=== PATIENT | male | born 1955 | race Caucasian/White ===

== ENCOUNTER 2017-04-05 18:16 | Inpatient (IN) | payer MEDICARE ==
[~2017-04-05] VITALS: Ht 168.9 cm; Wt 90.1 kg
--- NOTE | 2017-04-05 17:50 | NUR ---
PT ARRIVED TO UNIT PT IS ALERT AND ORIENTED ADMISSION COMPLETE. PIV SITED TO R FA 22G X2 STICKS. DRESSING ADHERED TO SKIN SWAB CAPS IN USE. PT REFUSES TO WEAR SCDS BECAUSE "FEAR OF FALLING" PT IS TAKING HOME MED ELIQUIS. BA IS ON. FALL BAND AND ALLERGY BAND PLACED.
[~2017-04-05 18:16] MED LIST: ACTOS30 MG PO; CARBATROL300 MG PO; DEPAKOTE500 MG PO; ELIQUIS2.5 MG PO; HUMULIN N100 U/ML SC; HUMULIN R100 U/ML SC; LIPITOR40 MG PO; LISINOPRIL5 MG PO; MYSOLINE250 MG PO; PREDNISONE5 MG PO; PRINIVIL20 MG PO; TENORMIN25 MG PO
[2017-04-05] MEDS ORDERED: CARBATROL300 MG PO (18:23)
[2017-04-05] MEDS ORDERED: BAYER CHEWABLE81 MG PO (18:23)
[2017-04-05 18:24] VITALS: BP 136/64; BMI 30.2
[2017-04-05 18:47] LABS: BASOPHILS 0.9 % (0-2); EOSINOPHILS 0.9 % (0-7); HEMATOCRIT 43.4 % (42.0-54.0); HEMOGLOBIN 14.7 g/dL (13.5-17.5); IMMATURE GRANULOCYTES 0.2 % (0-5); LYMPHOCYTES 29.9 % (15-50); MCH 32.2 pg (26.0-34.0); MCHC 33.9 g/dL (31.0-37.0); MEAN PLATELET VOLUME 10.5 fL (7.4-10.4); MONOCYTES 11.1 % (2-11); PLATELET COUNT 176 10x3/uL (130-400); RBC 4.57 10x6/uL (4.20-6.10); RDW 12.5 % (11.5-14.5); WBC 5.9 10x3/uL (4.8-10.8)
[2017-04-05 19:34] LABS: ALBUMIN 3.6 g/dL (3.4-5.0); ANION GAP 12.6 mmol/L (8-16); BILIRUBIN - TOTAL 0.36 mg/dL (0.2-1.3); CALCIUM 9.4 mg/dL (8.5-10.1); CARBON DIOXIDE 30.4 mmol/L (21.0-32.0); CREATININE - SERUM 1.2 mg/dL (0.6-1.3); PROTEIN - SERUM 7.1 g/dL (6.4-8.2)
[2017-04-05 19:43] LABS: CARBAMAZEPINE (TEGRETOL) 8.5 ug/mL (4.0-12.0); T4 THYROXIN - FREE 0.7 ng/dL (0.76-1.46); T4 THYROXINE 3.6 ug/dL (4.7-13.3); THYROID STIMULATING HORMONE 1.06 uIU/mL (0.36-3.74)
--- NOTE | 2017-04-05 21:21 | NUR ---
HS MEDS GIVEN WITH FRESH DIET COLA, PT DENIES PAIN OR OTHER NEEDS, BED LOW, CL IN REACH, WILL CONT TO MONITOR.
[2017-04-05 22:09] VITALS: BP 161/75
--- NOTE | 2017-04-06 01:33 | NUR ---
RESTING WITH EYES CLOSED, RESPERATIONS EVEN, NO S/S DISTRESS NOTED.
[2017-04-06 05:13] VITALS: BP 133/62
[2017-04-06] MEDS ORDERED: VALIUM 2 MG TAB2 MG PO (06:32)
--- NOTE | 2017-04-06 06:37 | NUR ---
TYLENOL 500 MG TAB GIVEN FOR C/O HEADACHE.
--- NOTE | 2017-04-06 07:29 | NUR ---
PT SITTING UP IN BED DENIES ANY NEEDS. GIVEN PT INSTRUCTIONS ON HOW TO OBTAIN CLEAN CATCH URINE. PT BA ON. WILL CONT TO MONITOR
--- NOTE | 2017-04-06 08:40 | NUR ---
PT SITTING IN HIGH FOWLERS POSITION. PHYSICAL ASSESSMENT DONE, SEE SHIFT ASSESS. 3 AREAS OF BRUISING/SCABS NOTED TO HEAD. LARGER ONES NOTED ABOVE RIGHT BROW LINE AND BACK OF CROWN ON LEFT SIDE. PT REPORTS A "MILD AND DULL PAIN". NO ACTIVE DRAINING NOTED FROM SORES. IV OF 0.45NS INFUSING VIA PUMP AT 30ML/HR TO RIGHT FA. SITE C/D/I. SKIN IS DRY AND FLAKY ALL OVER, EXACERBATED IN LOWER EXTREMETIES AND FEET. TOENAIS YELLOW AND RIGID. PT REPORTS PUTTING VICKS VAPOR RUB ON FEET AT HOME IN THE EVENINGS. PT INSTRUCTED ON CLEAN CATCH URINE PROCESS AND VERBALIZES UNDERSTANDING. AM MEDS GIVEN. PT DENIES FURTHER NEEDS AT THIS TIME.
[2017-04-06 08:41] VITALS: BP 104/54
--- NOTE | 2017-04-06 09:40 | NUR ---
PT IN LEFT TILT SEMI FOWLERS POSITION. PT REQUEST LIGHT TO BE DIMMED AND DOOR CLOSED. PT DENIES FURTHER NEEDS AT THIS TIME.
[2017-04-06 09:52] LABS: APPEARANCE TURBID (CLEAR); BILIRUBIN NEGATIVE (NEGATIVE); COLOR YELLOW (YELLOW); GLUCOSE 1000 mg/dL (NEGATIVE); KETONE SMALL mg/dL (NEGATIVE); LEUKOCYTE ESTERASE 2+ (NEGATIVE); NITRITE NEGATIVE (NEGATIVE); PROTEIN TRACE mg/dL (NEGATIVE); UROBILINOGEN NORMAL (NORMAL); WHITE CELLS - URINE >50 /hpf (0-5)
[2017-04-06 09:53] LABS: BACTERIA MANY /hpf (NONE SEEN); EPITHELIAL CELLS RARE /hpf (0-5); MUCUS <1+ /lpf (NONE SEEN)
--- NOTE | 2017-04-06 11:00 | NUR ---
PT IN RIGHT TILT POSITION RESTING WITH EYES CLOSED. RESP. EVEN AND UNLABORED. NO DISTRESS NOTED.
--- NOTE | 2017-04-06 12:15 | NUR ---
PT SITTING UP ONSIDE OF THE BED EATING DIET TRAY. DENIES NEEDS AT THIS TIME. VISITORS IN ROOM.
[2017-04-06 12:46] VITALS: BP 153/76
--- NOTE | 2017-04-06 13:15 | NUR ---
PT ASSISTED TO SHOWER CHAIR WHERE HE SHOWERS PER SELF. MARGARITA DOSHI REMAINS IN ROOM COMPLETING LINEN CHANGE AT THIS TIME.
--- NOTE | 2017-04-06 14:44 | NUR ---
LEAD GAME DESIGNER APPLIED PER ORDER. SINUS BRADYCARDIA AT 59 PER DESIGN MAKER.
[2017-04-06 16:53] VITALS: BP 157/58
--- NOTE | 2017-04-06 17:02 | NUR ---
Patient Name: ELLIOT FOX Admission Status: Elective Accout number: [id number] Admission Date: 04-05-2017 : 1955 Admission Diagnosis: Attending: EDGAR Current LOS: 1 Anticipated DC Date: TO BE DETERMINED Planned Disposition: Fdc Facility Primary Insurance: HUMANA CHOICE PPO MCR ADVANT PLANNED EXTERNAL PROVIDER: [facility] OR ASSISTED LIVING Discharge Planning Comments: * Is the patient Alert and Oriented? Yes 0 * How many steps to enter\\exit or inside your home? NONE 0 * PCP DR. ROACH 0 * Pharmacy [facility] 0 * Preadmission Environment Retirement 0 * Facility Name [facility] 0 * ADLs Partial Dependent 0 * Partial ADLs (Assistance needed) Medication Management 0 * Equipment Cane Glucometer 0 * Other Equipment NO MEDICAL EQUIPMENT PROVIDER PREFERENCE 0 * List name and contact numbers for known caregivers / representatives who currently or will assist patient after discharge: RICKY HARTMANN, FRIEND, 0 * Community resources currently utilized Other 0 * Please name any agencies selected above. [employer], [facility], HONG GUTIERREZ, 0 * Additional services required to return to the preadmission environment? Yes * Can the patient safely return to the preadmission environment? No 0 * Has this patient been hospitalized within the prior 30 days at any hospital? Yes 0 CM RECEIVED ORDER TO ASSIST WITH PLACEMENT. CM MET WITH PT IN ROOM TO DISCUSS DISCHARGE PLANNING AND NEEDS WELL ORDER. PT REPORTS LIVING AT [facility]. PT REPORTS THE FACILITY PROVIDES HIS MEDICATIONS AND TRANSPORTATION. PT REPORTS HE HAS BEEN GIVING HIMSELF HIS MEDICATIONS AND HAS BEEN ON INSULIN SINCE AGE 30. PT DENIES MENTAL ILLNESS, REPORTS HAVING SEIZURES SINCE AGE 10. PT HAS GLUCOMETER AND CANE. PT STATES HE CANNOT GO BACK TO [facility] AND NEEDS SOMEWHERE ELSE TO GO AND THAT RICKY HARTMANN IS THE PERSON THAT CM NEEDS TO CALL BECAUSE RICKY HARTMANN DOES HIS "LEGAL WORK" AND TAKES CARE OF PT'S BUSINESS. PT STATES THAT HE WILL GO WHERE RICKY ARRANGES FOR HIM. CM CALLED RICKY HARTMANN, ; RICKY REPORTS THAT PT WAS LIVING WITH HIS UNCLE UNTIL RICKY'S AUNT AND RICKY'S UNCLE HAD A STROKE. RICKY HAS TAKEN ON ASSISTING PT. PT HAS NO POWER OF REGIONAL TRAINER ASSIGNED. [facility] IS ASSIGNED CURRENTLY PT'S PAYEE FOR HIS CHECK. THE [facility] PT IS AT HAS NO HEALTHCARE INTERPRETER CAREGIVERS AND THEY HAVE NO OPENINGS AT [facility]. CM DISCUSSED ASSISTED LIVING AND [facility] OPTIONS. RICKY IS LEANING TOWARD [facility] PLACEMENT AND WOULD LIKE REFERRAL SENT TO [facility] HE HAS A PERSONAL RELATIONSHIP WITH THE FACILITY. RICKY ALSO CONSENTED TO REFERRAL TO [facility]. CM CALLED [facility], , SPOKE TO DEBBIE WHO REPORTS THEY DO NOT TYPICALLY ADMIT PERSONS UNDER AGE OF 65, BUT WILL CONSIDER PT AND ASKED FOR REFERRAL TO BE FAXED. CM CALLED [facility], , SPOKE TO ANNA MARIE WHO REPORTS SHE IS NOT HOPEFUL THAT THEY WILL ACCEPT PT BUT TO FAX REFERRAL AND THEY WILL REVIEW FOR HALF-WAY CARE ADMIT; PT WILL NEED [facility]Z APPROVAL TO ENTER ANY NEEDED [facility] FACILITY. CM CALLED HONG GUTIERREZ, RADIOGRAPHER TECHNOLOGIST AT [facility], , PROVIDED UPDATE ON PLACEMENT EFFORT. HONG FAXED CM PT'S IQ TESTING RESULTS. CM TO COMPLETE LUZ SCREENING, FAX TO [facility] AND ALSO FAX REFERRALS FOR PLACEMENT TO [facility] AND [facility]. Gold Layer: Mac Anton Appended by Mac Anton on 04/06/2017 17:02: CM COMPLETED LUZ WITH PT'S ASSISTANCE, OBTAINED DOCTORS SIGNATURE; FAXED TO [facility], . CM FAXED REFERRAL FOR HALF-WAY CARE PLACEMENT TO [facility], . CM FAXED REFERRAL FOR ASSISTED LIVING TO [facility], . CM SPOKE TO RICKY HARTMANN VIA PHONE AND PROVIDED UPDATE; RICKY REPORTS HE WILL RETURN TO [place] ON TUESDAY AND IS AVAILABLE VIA PHONE IF NEEDED. CM CALLED HONG WITH [facility] AND PROVIDED UPDATE. CM WAITING ADMISSION DETERMINATIONS FROM [facility] AND [facility]. CM WAITING LUZ SCREENING DETERMINATION. CM TO CONTINUE TO FOLLOW AND ASSIST. MAC ANTON, CASE MANAGEMENT
--- NOTE | 2017-04-06 18:33 | NUR ---
PT SITTING UP IN BED DENIES ANY NEEDS BA IS ON
--- NOTE | 2017-04-06 19:45 | NUR ---
PT RESTING IN BED. ALERT/ORIENTED. NONLABORED RESPIRATIONS ON ROOM AIR. IVF INFUSING TO RIGHT WRIST. ASSESSMENT COMPLETED. CPOC.
--- NOTE | 2017-04-06 21:28 | NUR ---
HS MEDS GIVEN. PT REQUESTING TYLENOL.
[2017-04-06 22:32] VITALS: BP 120/60
[2017-04-07] VITALS (7 sets, daily range): BP systolic 92–151; BP diastolic 47–82
--- NOTE | 2017-04-07 03:10 | NUR ---
PT AWAKE, C/O HEADACHE AND VERY KEYED UP AND UNABLE TO SLEEP. MEDICATED WITH TYLENOL AND VALIUM TO PROMOTE COMFORT AND SLEEP. IVF INFUSING. CPOC.
--- NOTE | 2017-04-07 07:29 | NUR ---
DURING AM ROUNDS, PT STATES THAT HE IS "HAVING A SEIZURE". I ASKED PT IF HE WAS CURRENTLY HAVING ONE AND WHAT HIS SYMPTOMS WERE. HE STATED "YOU KNOW HOW I KNOW? LOOK AT THIS FINGER.." AND THEN HE HELD OUT HIS R INDEX FINGER. THEN SAID "LOOK AT THIS FINGER, ITS SHORTER THAN THE OTHER ONE." THEN HELD OUT HIS LEFT INDEX FINGER. HE SAID "AND I AM COMPLETELY PARALYZED ON MY LEFT SIDE" PT IS STATING THIS HE IS MOTIONING HIS LEFT SIDE WITH HIS LEFT ARM. PT HAS FULL STRENGTH IN ALL EXTREMITIES. NO S/S SEIZURE LIKE ACTIVITY. PT STATES THAT THESE EPISODES MAY LAST ANYWHERE FROM 30 MIN-4 HOURS. AND HE MAY SLEEP FOR A WHILE AFTERWARDS AND TO NOT BE WORRIED ABOUT HIM. WILL CONT TO MONITOR
--- NOTE | 2017-04-07 11:06 | NUR ---
Patient Name: ELLIOT FOX Encounter No: [id number] : 1955 Primary Insurance: HUMANA CHOICE PPO MCR ADVANT Anticipated DC Date: Planned Disposition: Usp Facility OR ASSISTED LIVING External Planned Provider: [facility] OR [facility] follow-up note: CM RECEIVED LUZ RESPONSE INDICATING PT NEEDS LEVEL 2 LUZ PRIOR TO ENTERING ANY SNF FACILITY; THIS CAN TAKE UP TO 9 WORKING DAYS TO RECEIVE APPROVAL OR DENIAL. CM PLACED IN CHART, NOTIFIED NATHEN MURILLO. CM RECEIVED CALL FROM ANNA MARIE [facility] WHO IS CONTINUING TO EVAL PT FOR REHAB OR [facility], REQUESTED PT AND OT EVALUATION RESULTS WHEN RECEIVED. CM WAITING ON LUZ COMPLETION WHICH WILL LIKELY BE LATE NEXT WEEK. CM WAITING ADMISSION DETERMINATION FROM [facility] AND [facility] FOR REHAB OR [facility] PLACEMENT. RICKY HARTMANN, PT'S DECISION MAKER, WILL BE BACK IN [facility] SOMETIME TOMORROW, 04-08-17. Mac Camacho, CASE MANAGEMENT
--- NOTE | 2017-04-07 14:25 | NUR ---
PT SITTING UP IN BED SLEEPING. NO S/S DISTRESS NOTED RR EVEN AND UNLABORED. WILL CONT TO MONITOR
--- NOTE | 2017-04-07 17:19 | NUR ---
OT NOTE: PT COMPLETED BED MOB WITH MIN/MOD A. PT COMPLETED SITTING BALANCE WITH MIN A/CGA. PT COMPLETED FM SKILLS AX FOR INCREASED I WITH ADLS. PT COMPLETED SIMPLE GROOMING WITH CGA. THANK YOU, DARREL TOUSSAINT/Giovanna
--- NOTE | 2017-04-07 17:56 | NUR ---
PT SITTING UP IN BED WATCHING TV, DENIES ANY NEEDS WILL CONT TO MONITOR
--- NOTE | 2017-04-07 19:00 | NUR ---
RECEIVED REPORT AND ASSUMED PT CARE FROM DAY SHIFT NURSE @ THIS TIME.
[2017-04-08 04:00] VITALS: BP 108/57
[2017-04-08 07:48] VITALS: BP 133/55
--- NOTE | 2017-04-08 09:09 | NUR ---
Patient Name: ELLIOT FOX Encounter No: [id number] : 1955 Primary Insurance: HUMANA CHOICE PPO MCR ADVANT Anticipated DC Date: Planned Disposition: Halfway Facility OR ASSISTED LIVING External Planned Provider: [facility] follow-up note: CM RECEIVED CALL FROM PINO ALVARADO OF [facility], SHE WILL COME TO FACILITY TO EVALUATE PT FOR LEVEL 2 LUZ ON 04-08-17 BETWEEN 1430 AND 1500 HOURS. CM FAXED UPDATED NOTES AND THERAPY EVALUATIONS TO [facility] AND [facility]. CM WAITING LEVEL 2 LUZ COMPLETION. CM WAITING ADMISSION DETERMINATIONS FROM [facility] AND [facility] ASSISTED LIVING. Mac Anton, MAC ANTON
[2017-04-08 11:48] VITALS: BP 145/83
[2017-04-08 15:51] VITALS: BP 122/61
--- NOTE | 2017-04-08 18:15 | NUR ---
Patient Name: ELLIOT FOX Encounter No: [id number] : 1955 Primary Insurance: HUMANA CHOICE PPO MCR ADVANT Anticipated DC Date: Planned Disposition: Retirement Facility OR ASSISTED LIVING External Planned Provider: [facility] OR [facility] ASSISTED LIVING DCP follow-up note: DWAYNE MET PINO ALVARADO [facility], PROVIDED REQUESTED MEDICAL RECORDS; PINO MET WITH PT FOR EVALUATION OF LEVEL TWO LUZ SCREENING. HOSPITAL SHOULD RECEIVE THIS REPORT NEXT WEEK. CM CALLED TWICE FOR DEBBIE AT [facility], FIRST TIME SHE WAS GONE ON A BOATING TRIP WITH RESIDENTS, THE SECOND TIME, SHE WAS GONE FOR THE WEEKEND. JOHN ADVISED THAT SHE KNEW NOTHING ABOUT ADMISSIONS AND TO CALL DEBBIE ON 04-11-17. CM SPOKE TO PT WHO HAS NOT HEARD FROM RICKY HARTMANN, WHO MAKES DECISIONS FOR PATIENT. CM WAITING LEVEL TWO LUZ COMPLETION TO DETERMINE IF CM CAN GO FORWARD WITH FDC PLACEMENT REQUESTED BY PT AND HIS DECISION MAKER, RICKY HARTMANN. CM WAITING RETURN OF DEBBIE AT [facility] ON 04-11, TO ASK IF [facility] HAS MADE AN ADMISSION DETERMINATION REGARDING ASSISTED LIVING. Mac Camacho, CASE MANAGEMENT
[2017-04-08 19:00] VITALS: BP 113/55
[2017-04-09 04:00] VITALS: BP 113/56
[2017-04-09 08:37] VITALS: BP 119/56
[2017-04-09 13:03] VITALS: BP 109/56
[2017-04-09 16:03] VITALS: BP 120/62
[2017-04-09 20:00] VITALS: BP 125/58
--- NOTE | 2017-04-09 20:00 | NUR ---
PT RESTING IN BED WITH NO DISTRESS. VERY TALKATIVE AND ANIMATED. C/O OF HIS ONGOING HEADACHE AND HOW IT IS ALWAYS A "9". SHIFT ASSESSMENT COMPLETED. CPOC.
--- NOTE | 2017-04-09 23:00 | NUR ---
HS MEDS GIVEN. FSBS 160. HS INSULIN GIVEN. SNACK PROVIDED. NO OTHER NEEDS.
[2017-04-10] VITALS: BP 125/57
--- NOTE | 2017-04-10 01:00 | NUR ---
RESTING IN BED. TELLS NURSE HE HIS HAVING A SEIZURE BECAUSE ONE FINGER IS NOW BIGGER THAN THE OTHER. HE THEN SHOWS NURSE HIS TWO POINTER FINGERS AND CLEARLY FEELS THAT THERE IS ONE BIGGER THAN THE OTHER, BUT BOTH APPEAR THE SAME SIZE. PT TELLS NURSE HE WILL LAY DOWN SOON THE SEIZURE IS COMPLETED. AT THIS TIME, GROUND DEFENCE OFFICER ARRIVED IN ROOM WITH A SANDWICH TRAY AND PT SAID "OH YES! THIS SHOULD MAKE ME ALL BETTER!" AND PROCEEDED TO EAT THE ENTIRE SANDWICH TRAY. WILL MONITOR.
--- NOTE | 2017-04-10 03:51 | NUR ---
AWAKE AND PUTTING LOTION ON HIS FEET, THEN GIVEN NEW NON-SKID SOCKS. PT ALSO C/O HEADACHE. MEDICATED WITH TYLENOL AND ALSO GAVE AM PROTONIX SINCE PT SAID HE IS GOING TO SLEEP NOW.
[2017-04-10 04:00] VITALS: BP 151/74
[2017-04-10 08:00] VITALS: BP 124/77
[2017-04-10 12:00] VITALS: BP 112/81
--- NOTE | 2017-04-10 12:13 | NUR ---
ASSISTED UP TO CHAIR FOR LUNCH. CALL LIGHT IN REACH. WILL CONT. PLAN OF CARE.
[2017-04-10 16:00] VITALS: BP 119/57
[2017-04-10 19:00] VITALS: BP 121/62
--- NOTE | 2017-04-10 20:04 | NUR ---
RESTING IN BED WITH NO DISTRESS. TELLS NURSE AND DELINQUENT TAX COLLECTOR THAT HE IS HAVING ANOTHER ONE OF HIS "SEIZURES" WHERE ONE FINGER IS BIGGER THAN THE OTHER. PT CAN TALK, MOVE AND LAUGH ALL WHILE HE SAYS HE IS HAVING A SEIZURE. IF PT IS DISTRACTED BY SOMEONE IN HALLWAY, WHILE HIS SEIZURE IS HAPPENING, HE WILL TALK TO THEM. CPOC AND PROVIDE SAFE ENVIRONMENT. CALL LIGHT IN REACH. CPOC.
--- NOTE | 2017-04-10 20:41 | NUR ---
BEDTIME MEDS GIVEN. PT HAS SMALL ABRASION ON HIS RIGHT FOREARM FROM HITTING BEDRAIL. DRESSING APPLIED.
[2017-04-11] VITALS: BP 126/60
[2017-04-11 04:00] VITALS: BP 120/61
--- NOTE | 2017-04-11 07:44 | NUR ---
AWAKE WITHOUT DISTRESS. WARM AND DRY. MONITOR SHOWS SBRADY @ 55. WILL CONTINUE TO MONITOR.
[2017-04-11 08:22] VITALS: BP 124/66
[2017-04-11 11:43] VITALS: BP 127/58
[2017-04-11 13:50] VITALS: Ht 168.9 cm; Wt 90.1 kg
--- NOTE | 2017-04-11 15:35 | NUR ---
Patient Name: ELLIOT FOX Encounter No: [id number] : 1955 Primary Insurance: HUMANA CHOICE PPO MCR ADVANT Anticipated DC Date: Planned Disposition: Long-Term Facility External Planned Provider: [facility], BLANK DRILLER CARE MEDICAID BED DCP follow-up note: CM RECEIVED CALL FROM [facility], THEY HAVE NO OPENINGS AT THIS TIME. CM CALLED DEBBIE AT [facility], THEY WILL NOT ACCEPT PT. CM RECEIVED CALL FROM ANNA MARIE OF [facility] WHO REPORTS THEY WILL ACCEPT PT FOR FCI CARE IF LUZ DOES NOT PUT LIMIT ON TIME TO STAY AT FACILITY. CM WAITING LEVEL TWO LUZ COMPLETION TO DETERMINE IF CM CAN GO FORWARD WITH CUSTODIAL PLACEMENT REQUESTED BY PT AND HIS DECISION MAKER, RICKY HARTMANN. Mac Camacho, CASE MANAGEMENT
--- NOTE | 2017-04-11 15:37 | NUR ---
CO HEADACHE. MEDICATED ACCORDINGLY.
--- NOTE | 2017-04-11 15:41 | NUR ---
UP IN HALLWAY AMBULATING WITH P.T.
--- NOTE | 2017-04-11 16:56 | NUR ---
RESTING QUIETLY NO DISTRESS. PT REFUSED INSULIN DUE TO BS BEING ONLY 151.
--- NOTE | 2017-04-11 20:23 | NUR ---
RESTING IN BED WITH EYES CLOSED. NONLABORED RESPIRATIONS. PIV TO RFA SALINE LOCKED. SEE ASSESSMENT. CPOC. CALL LIGHT IN REACH.
[2017-04-12] VITALS: BP 137/57
[2017-04-12 04:00] VITALS: BP 127/60
[2017-04-12 05:23] LABS: BASOPHILS 0.6 % (0-2); EOSINOPHILS 2.2 % (0-7); HEMATOCRIT 36.6 % (42.0-54.0); HEMOGLOBIN 12.2 g/dL (13.5-17.5); IMMATURE GRANULOCYTES 0.2 % (0-5); LYMPHOCYTES 55.7 % (15-50); MCH 32.2 pg (26.0-34.0); MCHC 33.3 g/dL (31.0-37.0); MCV 96.6 fL (80.0-100.0); MEAN PLATELET VOLUME 10.1 fL (7.4-10.4); MONOCYTES 9.5 % (2-11); NEUTROPHILS 31.8 % (40-80); PLATELET COUNT 196 10x3/uL (130-400); RBC 3.79 10x6/uL (4.20-6.10); RDW 13.1 % (11.5-14.5); WBC 4.9 10x3/uL (4.8-10.8)
[2017-04-12 06:05] LABS: CALC OSMOLALITY 282 mosm/kg (275-300); CALCIUM 8.3 mg/dL (8.5-10.1); CARBON DIOXIDE 31.8 mmol/L (21.0-32.0); CHLORIDE - SERUM 102 mmol/L (98-107); CREATININE - SERUM 0.9 mg/dL (0.6-1.3); SODIUM 138 mmol/L (136-145); UREA NITROGEN 31 mg/dL (7-18); eGFR NON AFRICAN AMERICAN > 90 mL/min (90-120)
[2017-04-12 06:13] LABS: GLUCOSE 102 mg/dL (74-106)
--- NOTE | 2017-04-12 06:17 | NUR ---
PT RESTING WITH NO DISTRESS. AM MED GIVEN. NO NEEDS VOICED. CPOC. CALL LIGHT IN REACH.
--- NOTE | 2017-04-12 07:25 | NUR ---
AM ROUNDS- PT UP TO CHAIR, DENIES ANY NEEDS, RT FA IV SL, DRESSING NOTED TO RT FA. NAD NOTED, CALL LIGHT IN REACH, WILL CONTINUE TO MONITOR.
--- NOTE | 2017-04-12 08:46 | NUR ---
ADMINISTERED MORNING MEDICATIONS, PT DENIES ANY NEEDS AT THIS TIME. CALL LIGHT, NAD NOTED, WILL CONTINUE TO MONITOR.
[2017-04-12 09:06] VITALS: BP 118/74
[2017-04-12 11:57] VITALS: BP 142/63
--- NOTE | 2017-04-12 13:15 | NUR ---
Patient Name: ELLIOT FOX Encounter No: [id number] : 1955 Primary Insurance: HUMANA CHOICE PPO MCR ADVANT Anticipated DC Date: Planned Disposition: Senior Living Facility External Planned Provider: [facility], PRODUCTION SUPPORT ANALYST CARE MEDICAID BED DCP follow-up note: CM RECEIVED FAX FROM [employer] REQUESTING DOCTORS NOTES FROM 04/08/17 TO PRESENT. CM FAXED REQUESTED DOCUMENTS TO [employer] AT [phone]. [facility] WILL ACCEPT PT FOR PRODUCTION SUPPORT ANALYST CARE IF LUZ ALLOWS ENTRY INTO NURSING HOME FACILITY AND IF LUZ DOES NOT PUT LIMIT ON TIME TO STAY AT FACILITY. CM WAITING LEVEL TWO LUZ COMPLETION TO DETERMINE IF CM CAN GO FORWARD WITH LONG-TERM PLACEMENT REQUESTED BY PT AND HIS DECISION MAKER, RICKY HARTMANN. Mac Anton, CASE MANAGEMENT Appended by Mac Anton on 04/12/2017 13:15: CM PROVIDED AND READ IMPORTANT MESSAGE FROM MEDICARE TO PT. PT REPORTED UNDERSTANDING AND INITIALLED FORM HE IS UNABLE TO READ OR WRITE. CM TO FOLLOW AND ASSIST NEEDED. MAC ANTON, CASE MANAGEMENT
[2017-04-12 16:03] VITALS: BP 132/68
--- NOTE | 2017-04-12 16:32 | NUR ---
BLOOD SUGAR OF 198, 5 UNITS OF HUMULIN GIVEN ORDERED. PT IN BED, DENIES ANY NEEDS AT THIS TIME. CALL LIGHT IN REACH, NAD NOTED, WILL CONTINUE TO MONITOR.
[2017-04-12 19:00] VITALS: BP 115/54
--- NOTE | 2017-04-12 21:20 | NUR ---
HS MEDS GIVEN, TYLENOL 650 MG GIVEN FOR C/O PAIN.
[2017-04-13] VITALS: BP 129/61
[2017-04-13 04:00] VITALS: BP 138/65
--- NOTE | 2017-04-13 05:33 | NUR ---
SITTING UP IN BED, DENIES PAIN OR NEEDS.
[2017-04-13 07:00] VITALS: BP 134/72
--- NOTE | 2017-04-13 07:16 | NUR ---
AM ROUNDS- PT UP TO THE BATHROOM, DENIES ANY NEEDS AT THIS TIME. NAD NOTED, WILL CONTINUE TO MONITOR.
--- NOTE | 2017-04-13 08:42 | NUR ---
ADMINISTERED AM MEDS. PT IN BED, WATCHING TV. DENIES ANY NEEDS, BED LOW, WHEELS LOCKED, BEDSIDE X2. CALL LIGHT IN REACH, NAD NOTED, WILL CONTINUE TO MONITOR.
[2017-04-13 12:00] VITALS: BP 120/67
--- NOTE | 2017-04-13 12:47 | NUR ---
PT UP TO CHAIR, DENIES ANY NEEDS AT THIS TIME. CALL LIGHT IN REACH, NAD NOTED, WILL CONTINUE TO MONITOR.
[2017-04-13 16:00] VITALS: BP 112/52
--- NOTE | 2017-04-13 16:43 | NUR ---
BLOOD SUGAR OF 173, 5UNITS OF HUMULIN R GIVEN ORDERED.
[2017-04-13 19:00] VITALS: BP 119/99
--- NOTE | 2017-04-13 19:32 | NUR ---
RECEIVED REPORT, PT SLEEPING, SRX2, BED IS LOW, CALL LIGHT IN REACH, WILL CONTINUE PLAN OF CARE
[2017-04-14] VITALS: BP 120/52
--- NOTE | 2017-04-14 01:10 | NUR ---
MERCANTILE REPORTER AT BEDSIDE TO OBTAIN VITALS, CALL LIGHT IN REACH. WILL CONTINUE WITH PLAN OF CARE.
--- NOTE | 2017-04-14 03:26 | NUR ---
ASSESSMENT COMPLETE, SEE FLOWSHEET, PT SLEEPING NO DISTRESS NOTICED, BED IS LOW, SRX2, WILL CONTINUE PLAN OF CARE
[2017-04-14 04:00] VITALS: BP 131/68
--- NOTE | 2017-04-14 07:25 | NUR ---
ASSESSMENT DONE. DENIES NEEDS.
[2017-04-14 08:57] VITALS: BP 137/64
--- NOTE | 2017-04-14 09:26 | NUR ---
UP AMBULATING HALLWAY WITH CANE. GAIT STEADY.
[2017-04-14 12:13] VITALS: BP 157/59
[2017-04-14 15:59] VITALS: BP 121/90
--- NOTE | 2017-04-14 16:35 | NUR ---
WITHOUT CHANGES OR DISTRESS NOTED AT THIS TIME. DENIES NEEDS.
[2017-04-14 19:00] VITALS: BP 133/65
--- NOTE | 2017-04-14 19:30 | NUR ---
RECEIVED REPORT,PT WALKING IN GLVOER, WILL CONTINUE PLAN OF CARE
--- NOTE | 2017-04-14 19:30 | NUR ---
RECEIVED REPORT, PT WATCHING TV, DENIES ANY NEEDS AT THIS TIME, BED IS LOW, SRX2, CALL LIGHT IN REACH, WILL CONTINUE PLAN OF CARE
[2017-04-15] VITALS: BP 136/56
--- NOTE | 2017-04-15 01:26 | NUR ---
ASSESSMENT COMPLETE, IV-RFA, [id number], PT IS ALERT AND ORIENTATED, REFUSES SCD, BED IS LOW, SRX2, CALL LIGHT IN REACH, WILL CONTINUE PLAN OF CARE
[2017-04-15 04:00] VITALS: BP 145/60
--- NOTE | 2017-04-15 07:24 | NUR ---
ASSESSMENT DONE. DENIES NEEDS.
[2017-04-15 08:00] VITALS: BP 135/66
--- NOTE | 2017-04-15 10:25 | NUR ---
RESTS WITH EYES CLOSED. NO S/S DISCOMFORTS NOTED. CALL LIGHT IN REACH. WILL MONITOR.
--- NOTE | 2017-04-15 11:50 | NUR ---
CALLED AND SPOKE WITH [facility] IN [place] TO WHERE WE WERE WITH PATIENTS [facility]. SPOKE WITH CHELA WHO STATED THAT THE PATIENT DOES NOT MEET MEDICAL CRITERIA TO BE PLACED IN A FACILITY. SHE STATED THAT A LETTER WAS SENT OUT WITH THE REASONING AND THAT AFTER WE GET THE LETTER, WE CAN HAVE THE PHYSICIAN CALL OR CAN SEND IN A FORM 703. [facility] PL[facility]QU[facility] RECEIPT OF THE LETTER. VOICEMAIL LEFT. WILL WAIT FOR RETURN CALL. HAVE DISCUSSED THIS WITH KATERINA MURILLO APN.
[2017-04-15 12:00] VITALS: BP 139/62
--- NOTE | 2017-04-15 12:53 | EC ---
PATIENT:ELLIOT FOX DATE OF SERVICE: 04/05/17 SEX: M MEDICAL RECORD: [id number] DATE OF : [birth year] LOCATION:D.M2 D.212 AGE OF PATIENT: 61 ADMISSION DATE: 04/05/17 REFERRING PHYSICIAN: INTERPRETING PHYSICIAN: AALIYAH MARTEL MD ECHOCARDIOGRAM REPORT ECHO CHARGES 4 ECHO COMPLETE CLINICAL DIAGNOSIS: SYNCOPE HX HTN/CLOTS IN LEGS ECHOCARDIOGRAPHIC MEASUREMENTS (adult normal given) AC root (d.<3.7cm) 4.0 LV Septum d (<1.2 cm> 1.4 Valve Excursion 2.2 LV Septum (systole) 1.8 Left Atria (s.<4.0cm> 3.7 LVPW d(<1.2cm) 1.5 RV (d.<2.3cm) 3.3 LVPW (sytole) 1.6 LV diastole(<5.6CM) 5.1 MV E-F(>70mm/sec) LV systole 3.7 LVOT Diameter 1.5 MV exc.(>10mm) 1.5 Est.ejection fraction (50-75%) Pericardial Effusion N DOPPLER: LVIT A 89.0 E 72.0 LA RVSP 19 LVOT 86 AOP1/2T Asc. Ao 112 RVOT 87 RA PA 104 AV Gradient Peak 2.94 AV Mean 1.33 AV Area 1.6 MV Gradient Peak 4.59 MV Mean 1.39 MV Area COMMENTS: Aircraft Cleaning Supervisor: Winter DIXON Truck Repair Supervisor:Delroy Wiseman TAPE# PACS DATE OF SERVICE: 04/06/2017 Adequate 2D echo, color flow, spectral Doppler and M-mode. Borderline LVH. LV internal dimension is normal. Wall motion is normal. EF is greater than 55%. Aortic valve is tricuspid. No stenosis by Doppler interrogation. Left atrium normal at 3.7 cm. Mitral valve shows no prolapse. Trace MR. Right-sided chamber is normal. Trace TR. TRANSINT:[id number] Voice Confirmation ID: [id number] DOCUMENT ID: [id number] 04/14/2017 Edited to correct date of service, dm. ECHOCARDIOGRAM REPORT [id number] ELLIOT FOX AALIYAH MARTEL MD at [id number] CC: [id number] DICTATION DATE: 04/07/17 1319 CERTIFIED EMERGENCY VEHICLE TECHNICIAN: 04/07/17 2324 ADM IN [facility] [address] [place] [address]
--- NOTE | 2017-04-15 14:00 | NUR ---
PER [facility], THE PATIENT DOES NOT MEET LONG TERM CRITERIA AND HAS BEEN DENIED LONG TERM PLACEMENT BY [facility]. SPOKE WITH CHELA. SHE DID NOT REALIZE THAT A 703 HAD ALREADY BEEN DONE. THE DECISION IS FINAL. HAVE SPOKE WITH RICKY HARTMANN, HE STATED THAT HE WAS NOT THE GUARDIAN OF THE PATIENT. HE SAID THAT THE PATIENT WAS HIS OWN GUARDIAN. STATED THAT THE PATIENT WAS ABANDONED AT [facility] 40 YEARS AGO AND HAS JUST BEEN HANDED DOWN FROM PERSON TO PERSON, BUT NO ONE HAS ANY LEGAL TIES TO HIMSELF. EXPLAINED THAT THE DOCTORS ARE WANTING TO DISCHARGE HIM AND I NEEDED TO SEE IF HE WOULD BE ABLE TO TAKE THE PATIENT OR HAD ANYMORE RECOMMENDATIONS. HE STATED THAT HE IS ON THE ROAD ALL THE TIME AND WOULD NOT BE HOME TO PROVIDE CARE FOR ELLIOT. HE RECOMMENDED THAT I CALL AND TALK WITH BENTLEY AT [facility] TO SEE IF THEY HAD ANOTHER FACILITY THAT HE COULD MOVE INTO. CALL WAS PLACED TO HER AND HAD TO LEAVE HER A VOICEMAIL. SPOKE WITH MY ANIMAL COP ABOUT THE SITUTATION AND SHE IS GOING TO TRY TO ASSIST WITH IT. ALL THIS WAS EXPLAINED TO DR ROLLE AND ANKITA BORGES.
--- NOTE | 2017-04-15 14:37 | NUR ---
Rehab Note- Acute Rehab Prescrren order received. The patient is [employer] and would require a PreAuth prior to an acute rehab. The patient is noted by Physical therapy to be ambulating in the hallways and signed off to nursing at this time. The patient would not qualify for acute rehab due to being too high functioning physically. Thank you for this referral! Briana Blanca RN Clinical Liaison, [facility] Rehab
[2017-04-15 16:00] VITALS: BP 130/83
--- NOTE | 2017-04-15 18:02 | NUR ---
WITHOUT CHANGES OR DISTRESS NOTED AT THIS TIME. DENIES NEEDS.
[2017-04-15 19:00] VITALS: BP 108/52
--- NOTE | 2017-04-15 19:20 | NUR ---
RECEIVED REPORT, PT SLEEPING, BED IS LOW, SRX2, CALL LIGHT IN REACH, WILL CONTINUE PLAN OF CARE
--- NOTE | 2017-04-15 23:45 | NUR ---
PT RESTING WELL WITHOUT C/O OR DISTRESS NOTED. NO CHANGES NOTED IN ASSESSMENT. CALL LIGHT WITHIN REACH. WILL CONT TO MONITOR.
--- NOTE | 2017-04-16 02:32 | NUR ---
ASSESSMENT COMPLETE,SEE FLOWSHEET, PT WALKING IN [place], WILL CONTINUE PLAN OF CARE
[2017-04-16 04:00] VITALS: BP 119/47
--- NOTE | 2017-04-16 07:30 | NUR ---
PATIENT OUT AMBULATING IN THE [place] WAY. STEADY GATE NOTED. HE IS PLEASANT AND TALKATIVE.
[2017-04-16 08:03] VITALS: BP 147/70
--- NOTE | 2017-04-16 09:10 | NUR ---
PATIENT GIVEN ORAL MEDICATIONS. HE TOOK ALL OF THEM IN ONE MOUTH FULL WITHOUT DIFFICULTY. HIS FSBS THIS MORNING. WAS 94. RECHECKED IT AND AFTER DISCUSSING THE RESULTS GAVE HIM THE PRESCRIBED NPH. HE C/O PAIN IN IS SHOULDERS THAT HE DISCRIBED AT BURSITIS/ARTHRITIS.
--- NOTE | 2017-04-16 10:27 | NUR ---
OUT OF ROOM AT THIS TIME FOR HEART CATH.
[2017-04-16 11:46] VITALS: BP 121/58
--- NOTE | 2017-04-16 12:05 | NUR ---
PATIENT IS SITTING UP IN THE BEDSIDE CHAIR EATING HIS LUNCH. DENIES NEEDS.
[2017-04-16 16:00] VITALS: BP 92/34
[2017-04-16 20:15] VITALS: BP 97/51
[2017-04-17] VITALS (7 sets, daily range): BP systolic 112–137; BP diastolic 50–63
--- NOTE | 2017-04-17 05:25 | NUR ---
PT C/O FEELING DIZZY AND STATES THAT SUDDENLY HE COULD NOT STAND. VSS LAYING AND SITTING. PT REFUSES TO STAND. GLUCOSE CHECKED AND RESULTS 62. ORAL FEEDING GIVEN. WILL RECHECK AFTER 20 MIN.
--- NOTE | 2017-04-17 06:04 | NUR ---
GLUCOSE RECHECKED AND NOW 70. PT STATES FEELING BETTER. WILL CONT TO MONITOR.
--- NOTE | 2017-04-17 07:37 | NUR ---
ASSESSMENT COMPLETED. TELEMERTY SHOWS SR AT 63. UP AB JOYCE. STATES HE DOESNT FEEL WELL THIS MORNING DUE TO BS DROPPING TO 60 THIS MORNING. SR UP WITH CALL LIGHT IN REACH
--- NOTE | 2017-04-17 10:19 | NUR ---
PT LYING QUIETLY WITH EYES CLOSED. RESP NONLABORED. WILL MONITOR
--- NOTE | 2017-04-17 14:19 | NUR ---
PT WALKING IN HALLWAY. GAIT STEADY. DENIES ANY FUTHER HEADACHE. TELEMERTY SHOWS SR.
--- NOTE | 2017-04-17 20:00 | NUR ---
PT UP AND ABOUT ON UNIT. ALERT/ORIENTED. NO IV ACCESS PER PT REQUEST. SEE ASSESSMENT. CPOC.
--- NOTE | 2017-04-17 21:38 | NUR ---
HS MEDS GIVEN. FSBS 163, NOVOLIN N 30 UNITS ADMINISTERED. NO SLIDING SCALE ORDERED. REQUESTED TYLENOL FOR HEADACHE. MONITOR AND CPOC.
--- NOTE | 2017-04-17 23:36 | NUR ---
RESTING WITH EYES CLOSED. NO DISTRESS. CPOC.
[2017-04-18 01:07] VITALS: BP 147/66
[2017-04-18 05:26] VITALS: BP 127/67
[2017-04-18 08:00] VITALS: BP 157/67
--- NOTE | 2017-04-18 08:44 | NUR ---
UP SOB EATING BRK. CALL LIGHT IN REACH. WILL CONT. PLAN OF CARE.
--- NOTE | 2017-04-18 09:01 | NUR ---
Patient Name: ELLIOT FOX Encounter No: [id number] : 1955 Primary Insurance: HUMANA CHOICE PPO MCR ADVANT Anticipated DC Date: Planned Disposition: ASSISTED LIVING External Planned Provider: TO BE DETERMINED DCP follow-up note: CM REVIEWED CHART, DETERMINED THAT PT IS DISABLED ADULT WITH NO GUARDIAN OR LEGAL LIBRARY SALES CONSULTANT THAT IS ABLE TO ASSIST IN ARRANGING FOR PT'S CARE. CM CALLED ADULT PROTECTIVE SERVICES HOTLINE, , PROVIDED REPORT TO NAVDEEP OF APS. CM TO CONTINUE TO SEEK PLACEMENT FOR PATIENT AND FOR ADULT PROTECTIVE SERVICES DECISION ON INTERVENTION. Mac Camacho, CASE MANAGEMENT
[2017-04-18 12:38] VITALS: BP 125/60
--- NOTE | 2017-04-18 16:12 | NUR ---
OT NOTE: DC PT FROM OT SERVICES. PT OBSERVED AMB IN ROOM AND THROUGHOUT HALLS; DRESSING WITHOUT ASSIST; PT APPEARS TO BE AT PLOF PHSICALLY
[2017-04-18 16:33] VITALS: BP 101/62
--- NOTE | 2017-04-18 17:52 | NUR ---
WITHOUT CHANGES OR DISTRESS NOTED AT THIS TIME. DENIES NEEDS.
[2017-04-18 21:30] VITALS: BP 132/62
[2017-04-19 02:21] VITALS: BP 139/61; BP 141/72
--- NOTE | 2017-04-19 06:00 | NUR ---
FSBS 72, PT OUT WALKING IN HALLWAY. PROVIDED HIM WITH ORANGE JUICE AND A FEW VANILLA WAFERS. HAPPILY SITTING IN CHAIR BY NURSES STATION EATING/DRINKING AND TALKING TO ANYONE THAT WILL STOP AND TALK TO HIM. CPOC.
[2017-04-19 06:34] VITALS: BP 124/60
[2017-04-19 08:14] VITALS: BP 144/66
--- NOTE | 2017-04-19 08:32 | NUR ---
ASSESSMENT DONE. DENIES NEEDS.
--- NOTE | 2017-04-19 09:22 | NUR ---
SITTING UP SOB WITH CALL LIGHT IN REACH. NORMAN NEEDS AT THIS TIME. WILL MONITOR.
[2017-04-19 12:00] VITALS: BP 114/57
--- NOTE | 2017-04-19 13:23 | NUR ---
Patient Name: ELLIOT FOX Encounter No: [id number] : 1955 Primary Insurance: HUMANA CHOICE PPO MCR ADVANT Anticipated DC Date: Planned Disposition: Assisted Living External Planned Provider: TO BE DETERMINED DCP follow-up note: CM RECEOVED CALL FROM [facility] AT [phone], THEY HAVE NO AVAILABLE OPENINGS AND SUGGESTED [facility], AND HOME [facility] IN [place], . CM RECEIVED CALL FROM MARCIA MURDOCK OF ADULT [facility]OTECTIVE SERVICES WHO HAS BEEN ASSIGNED PT'S CASE. MARCIA ASKED FOR FAX OF BASIC MEDICAL INFORMATION AND HE WILL TRY TO HELP WITH PLACEMENT. PT HAS "[place]" MEDICAID AND WILL NOT QUALIFY FOR "AR CHOICES." CM FAXED BASIC INFORMATION TO APS AT [phone]. ALVIN, SAS SQL DEVELOPER FOR [facility] AND WILL SCREEN PT FOR PLACEMENT IN ASSISTED LIVING AND ASSIST IF POSSIBLE. ALVIN MET WITH PT, CM PROVIDED BASIC CHART INFORMATION FOR PLACEMENT. DWAYNE CONTINES TO SEEK PLACEMENT FOR PT'S DETENTION CARE. CHANCE ANTON, CASE MANAGEMENT
--- NOTE | 2017-04-19 14:02 | NUR ---
Nutrition follow-up: Diet: ADA consistent CHO PO Intake 100% of meals labs: glucose under good control +BM Wt: stable RDN following.
[2017-04-19 16:00] VITALS: BP 128/65
--- NOTE | 2017-04-19 17:50 | NUR ---
WITHOUT CHANGES OR DISTRESS NOTED AT THIS TIME. DENIES NEEDS.
[2017-04-19 20:39] VITALS: BP 126/58
--- NOTE | 2017-04-19 23:11 | NUR ---
AMBULATORY IN ON LICENSE OF [facility]. HAS PULLED OFF HIS TELEMETRY. PT HAS BEEN SR HIS ENTIRE STAY. HE IS IN THE PROGRESS OF BEING WORKED UP FOR DISCHARGE. DECISION MADE TO D/C TELEMETRY.
[2017-04-20 00:47] VITALS: BP 116/58
[2017-04-20 04:56] VITALS: BP 135/65
--- NOTE | 2017-04-20 07:36 | NUR ---
PT AWAKE IN BED A&O WAITING FOR BREAKFAST DENIES ANY NEED NO S/S OF DISTRESS WILL CONTINUE TO MONITOR
[2017-04-20 08:00] VITALS: BP 128/57
--- NOTE | 2017-04-20 09:03 | NUR ---
Patient Name: ELLIOT FOX Encounter No: [id number] : 1955 Primary Insurance: HUMANA CHOICE PPO MCR ADVANT Anticipated DC Date: Planned Disposition: Assisted Living External Planned Provider: TO BE DETERMINED DCP follow-up note: CM RECEIVED CALL FROM RICKY HARTMANN WHO REPORTS HE SPOKE TO HIS PEOPLE LAST NIGHT AND RICKY HAS DECIDED THAT HE WILL NOT SIGN FOR PT AND CANNOT HANDLE [place] ANY LONGER. RICKY IS TRYING TO NOTIFY APS NOW. CM CALLED MARCIA MURDOCK WITH APS, , NOTIFIED OF RICKY HARTMANNS STATEMENT. MARCIA WILL CHECK WITH HIS STRIPPING SHOVEL OPERATOR ABOUT TAKING HOLD ON PT AND ALSO WILL COME TO ASSESS PT TODAY IN THE HOSPITAL. CM CALLED ALVIN OF [facility] WHO WILL NOT BE FILING FOR MEDICAID AT THIS TIME DUE TO APS PROBABLE HOLD. CM CONTINES TO SEEK PLACEMENT FOR PT'S SENIOR LIVING CARE. Mac Camacho, CASE MANAGEMENT
[2017-04-20 12:00] VITALS: BP 138/63
--- NOTE | 2017-04-20 14:24 | NUR ---
ALVIN RANDOLPH HERE FROM [facility]. NEW [address] BARTHOLOMEW AND FAXED. CALL WAS PLACED TO CHELA AT [facility], SHE STATED TO CALL BACK IN ANOTHER 30 MINUTES AND SHE WOULD CONFIRM OR DENY THE FAX RECEIPT AND IF THERE'S A CHANCE A DECISION CAN BE MADE TODAY. THIS INFORMATION HAS BEEN RELAYED TO ALVIN AND TO DR BARTHOLOMEW AND KATERINA MURILLO, ANKITA. WILL UPDATE THEM I KNOW. PATIENT DOES HAVE AN ASSIGNED GUARDIAN THROUGH [facility], AND HIS MEDICAID APPLICATION HAS BEEN FILED.
--- NOTE | 2017-04-20 17:15 | NUR ---
Patient Name: ELLIOT FOX Encounter No: [id number] : 1955 Primary Insurance: HUMANA CHOICE PPO MCR ADVANT Anticipated DC Date: 04-21-2017 Planned Disposition: Nursing Facility [place] [facility] External Planned Provider: [facility], [facility] MEDICAID BED DCP follow-up note: CM RECEIVED MESSAGE FROM SHARAN VITALE WHO REPORTED RECEIVING CM REFERRAL FOR PLACEMENT, REPORTS NO AVAILABLE BEDS AT [facility]. DWAYNE SPOKE TO JOHNNA OF [facility] WHO REPORTS NEW [facility] WAS SUBMITTED FOR REVIEW TO TRY FOR LONG-TERM CARE LONG-TERM PLACEMENT AT [facility]. ALVIN HAS MET WITH MARCIA JOHNSON OF ADULT PROTECTIVE SERVICES WHO IS IN AGREEMENT WITH PLACEMENT AT [facility]. CM NOTIFIED PT WHO REPORTS THAT HE WOULD LIKE FOR RICKY HARTMANN TO BE NOTIFIED OF WHERE HE GOES TO LIVE. CM CALLED AND SPOKE TO BRIAN AT [facility] WHO REPORTS NEEDING DATES ON [facility] SENT EARLIER AND THREE DAYS OF DOCTOR AND NURSES NOTES. CM RECEIVED DATED [facility], FAXED ALONG WITH REQUESTED CHART NOTES. CM SPOKE TO ALVIN AT [facility] WHO REPORTS THEY WILL ACCEPT TOMORROW IF APPROVED BY [facility] / OFFICE OF LONG-TERM CARE. CM WAITING [facility] DETERMINATION FOR LONG-TERM CARE LONG-TERM PLACEMENT. Mac Camacho, CASE MANGEMENT
--- NOTE | 2017-04-20 19:03 | NUR ---
PT RESTING IN BED, NO S/S OF DISTRESS DENIES ANY NEEDS CALL LIGHT WITHIN REACH WILL CONTINUE TO MONITOR
--- NOTE | 2017-04-20 19:30 | NUR ---
REPORT RECIEVED. ASSESSMENT COMPLETED. PT RESTING IN BED WATCHING TV.
[2017-04-20 20:04] VITALS: BP 97/43
[2017-04-20 23:53] VITALS: BP 113/54
--- NOTE | 2017-04-21 01:00 | NUR ---
PT STATED " MY SUGAR ISNT RIGHT" CHECKED IT AND 55 TREATED WITH JUICE.WILL RECHECK IN A HOUR.
--- NOTE | 2017-04-21 02:00 | NUR ---
RECHECK PT BS WAS 116. PT STATED " HE WAS FEELING BETTER".
[2017-04-21 03:47] VITALS: BP 168/78
--- NOTE | 2017-04-21 04:00 | NUR ---
PT SLEEPING IN BED.
--- NOTE | 2017-04-21 07:00 | NUR ---
AWAKE AND ALERT. SITTING IN CHAIR. VERY PLEASANT. NO NEEDS AT THIS TIME.
[2017-04-21 07:53] VITALS: BP 124/58
--- NOTE | 2017-04-21 10:05 | NUR ---
BS 173. 5 UNITS OF HUMULIN NPH GIVEN PER ORDERS.
[2017-04-21 11:51] VITALS: BP 126/51
--- NOTE | 2017-04-21 13:00 | NUR ---
PT IN ROOM RESTING ON BED. STATES THAT HE IS HAVING A SEIZURE. HE'S AWAKE AND ALERT. ABLE TO HAVE A CONVERSATION. HE STATES THAT WHEN HE HAS A SEIZURE HIS LEFT INDEX FINGER IS LONGER THAN HIS RIGHT INDEX FINGER. WILL CONTINUE TO MONITOR.
--- NOTE | 2017-04-21 14:44 | NUR ---
PT RESTING QUIETLY. AWAKES EASILY. BED LOW POSITION. CALL LIGHT IN REACH.
--- NOTE | 2017-04-21 14:49 | NUR ---
CALLED PHARMACY FOR A VIAL OF HUMULIN REGULAR. PT HAS ORDERS TO TAKE AT 1630 DEPENDING ON BLOOD SUGAR. DID NOT HAVE A VIAL IN CASSETTE.
[2017-04-21 15:37] VITALS: BP 122/52
--- NOTE | 2017-04-21 16:24 | NUR ---
BS 126. 5 UNITS OF HUMILIN REG GIVEN ON RIGHT ARM. PT AWAKE AND ALERT.
--- NOTE | 2017-04-21 17:26 | NUR ---
PT EATING DINNER. NO OTHER NEEDS AT THIS TIME.
[2017-04-21 19:00] VITALS: BP 109/67
--- NOTE | 2017-04-21 19:00 | NUR ---
Received patient resting in bed with eyes closed, assessment completed per flowsheet. Patient AO x4, calm and cooperative. Eyes PERRLA @ 4mm with brisk response. S1/S2 noted, rhythmic and regular. Breathing is even and unlabored on room air, lung sounds clear all richter. Abdomen is flat and soft, non-tender to palpation with bowel sounds active x4. Patient ambulates to commode with no assistance, no difficulties reported. Full ROM all extremities with all pulses palpable, cap refill < 3 sec. No IV access at this time. Patient denies pain or other needs at this time, all VSS and will continue to monitor.
--- NOTE | 2017-04-21 21:00 | NUR ---
Patient BS 67, provided juice and ice cream. Will re check in 30 min.
--- NOTE | 2017-04-21 21:30 | NUR ---
Patient rechecked after snacks, BS 115. Will continue to monitor.
--- NOTE | 2017-04-21 23:00 | NUR ---
Patient resting in bed with eyes closed, denies pain or other needs at this time. All VSS and will continue to monitor.
[2017-04-22] VITALS: BP 120/50
--- NOTE | 2017-04-22 01:00 | NUR ---
Patient up out of room sitting at nurses station, ambulates using cane and no assistance. Denies pain or other needs at this time, all VSS and will continue to monitor.
--- NOTE | 2017-04-22 03:00 | NUR ---
Patient resting in bed with eyes closed, reassessment completed per flowsheet. Patient AO x4, calm and cooperative. Patient repeats self over multiple conversations, details remain consistent. S1/S2 noted, rhythmic and regular. Breathing is even and unlabored on room air, O2 sat 94%. All pulses palpable with cap refill < 3 sec. Denies pain or other needs at this time, all VSS will continue to monitor.
--- NOTE | 2017-04-22 05:05 | NUR ---
Patient sitting up at bedside, denies pain or other needs at this time. Will continue to monitor.
--- NOTE | 2017-04-22 07:28 | NUR ---
PT SITTING UP IN BED A&O. NO S/S OF DISTRESS. WAITING ON BREAKFAST. DENIES ANY NEEDS WILL CONTINUE TO MONITOR
[2017-04-22 07:56] VITALS: BP 149/65
--- NOTE | 2017-04-22 10:15 | NUR ---
WHILE PT WAS UP IN THERAPY IV FELL OUT CATH INTACT. PRESSURE APPLIED LEXI CALLED FOR NEW ACCESS. PT UP IN CHAIR CALL LIGHT IN REACH NO S/S OF DISTRESS DENIES ANY NEEDS WILL CONTINUE TO MONITOR
[2017-04-22 11:55] VITALS: BP 119/55
--- NOTE | 2017-04-22 13:31 | NUR ---
Patient Name: ELLIOT FOX Encounter No: [id number] : 1955 Primary Insurance: HUMANA CHOICE PPO MCR ADVANT Anticipated DC Date: 04-21-2017 Planned Disposition: ASSISTED LIVING External Planned Provider: TO BE DETERMINED DCP follow-up note: CM CALLED AND ASKED FOR UPDATE FROM BRIAN AT [facility]. BRIAN FOUND THAT [facility] HAS BEEN DENIED BY OFFICE OF ALF CARE, PT MAY NOT ENTER A LONG-TERM FACILITY AND [facility] IS REFERRING PT TO DIVISION OF DISABLITY SERVICES, PACKET WILL BE EMAILED TO WORKER IN [facility] WITHIN THE HOUR. CM CALLED [facility] WORKER, WIN KAHN, , EXT 247, LEFT MESSAGE WITH ABOVE INFORMATION AND REQUESTED RETURN CALL SOON POSSIBLE. CM CALLED ADULT PROTECTIVE SERVICES WORKER MARCIA MURDOCK, , NOTIFIED OF ABOVE. MARCIA WILL SPEAK TO WIN OF S AND HIS SUPERVISORS REGARDING PT'S CIRCUMSTANCES AND CONTINUE SEEKING PLACEMENT FOR PT A HOLD BY APS HAS BEEN TAKEN. CM WAITING RETURN CALL FROM DDS WORKER CRISS AND PLACEMENT ASSISTANCE FROM APS WORKER MARCIA MURDOCK. Mac Camacho, CASE MANAGEMENT
--- NOTE | 2017-04-22 13:43 | NUR ---
Nutrition Follow Up: Pt is eating 100% meal avg on a diabetic diet. +BM 04/22/17. Wt stable. Meds and labs reviewed. Rec continue current diet. RD following.
--- NOTE | 2017-04-22 17:58 | NUR ---
PT WAS SLEEPING NOW AWAKE WATCHING TV. BED LOW CALLLIGHT IN REACH. DENIES ANY NEEDS NO S/S OF DISTRESS. WILL CONTINUE TO MONITOR
--- NOTE | 2017-04-22 18:01 | NUR ---
PT RESTING IN BED.WATCHING TV. BED LOW AND CALLLIGHT WITHIN REACH DENIES ANY NEEDS. NO S/S OF DISTRESS WILL CONTINUE TO MONITOR
--- NOTE | 2017-04-22 18:01 | NUR ---
PT SITTING UP IN BED DENIES NEEDS
[2017-04-22 19:00] VITALS: BP 108/49
--- NOTE | 2017-04-22 21:43 | NUR ---
HS MEDS GIVEN WITH A CARTON OF MILK, BS 104, NO COVERAGE NEEDED, HS SNACK PROVIDED.
[2017-04-23] VITALS: BP 106/50
[2017-04-23 04:00] VITALS: BP 126/61
--- NOTE | 2017-04-23 04:49 | NUR ---
SITING AT NURSES STATION VISITING WITH STAFF. DENIES PAIN OR NEEDS.
--- NOTE | 2017-04-23 07:12 | NUR ---
PT SITTING UP IN CHAIR WAITING ON BREAKFAST. DENIES ANY NEEDS NO S/S OF DISTRESS WILL CONTINUE TO MONITOR
[2017-04-23 09:12] VITALS: BP 145/65
--- NOTE | 2017-04-23 11:46 | NUR ---
PT WALKING AROUND UNIT. JUST WENT BACK TO ROOM. DENIES ANY NEEDS. NO S/S OF DISTRESS WILL CONTINUE TO MONITOR
[2017-04-23 12:39] VITALS: BP 146/68
[2017-04-23 15:50] VITALS: BP 141/68
--- NOTE | 2017-04-23 16:35 | NUR ---
PT SITTING UP IN BED WAITING ON DINNER TRAY DENIES ANY NEEDS WILL CONT TO MONITOR
[2017-04-23 19:00] VITALS: BP 124/46
--- NOTE | 2017-04-23 19:34 | NUR ---
INITIAL ROUNDS COMPLETED. PT RESTING WITH EYES CLOSED. RESP EVEN AND REGULAR. SR UP X2,CALL LIGHT WITHIN REACH.
--- NOTE | 2017-04-23 22:14 | NUR ---
ASESSMENT COMPLETEDA T 1954 HRS. PT DENIED ANY DISCOMFORT. NO IV ACCESS. VSS. ALERT AND ORIENTED TO PERSON, PLACE AND TIME. NUMEROUS SCABS NOTED TO LOWER EXTREMITIES. LUNGS DIMINISHED IN BASES BILAT. PM FSBS 69. PT REFUSES PM NPH. PM MEDS GIVEN. NUMEROUS SNACKS SERVED. TYLENOL 500 MG PO GIVEN FOR C/O ROTH. PT CURRENTLY WATCHING TV. WILL CONTINUE TO MONITOR. SR UP X2, CALL LIGHT WITHIN REACH.
[2017-04-24] VITALS (7 sets, daily range): BP systolic 115–144; BP diastolic 50–62
--- NOTE | 2017-04-24 00:12 | NUR ---
PT AMBULATING HALLS WITH CANE. GAIT EVEN AND STEADY. DENIES ANY DISCOMFORT. WILL CONTINUE TO MONITOR.
--- NOTE | 2017-04-24 03:13 | NUR ---
TLENOL 500MG PO GIVEN FOR C/O ROTH. COFFEE GIVEN PER REQUEST. WILL CONTINUE TO MONITOR.
--- NOTE | 2017-04-24 06:48 | NUR ---
VSS THROUGHOUT NIGHT. PT CONTINUES TO HAVE C/O ROTH DURING SHIFT. AM FSBS 209. 5 UNITS REG INSULIN GIVEN AC PER ORDERS. NEEDS MET; WILL CONTINUE TO MONITOR.
--- NOTE | 2017-04-24 08:34 | NUR ---
ASSESSMENT DONE. DENIES NEEDS.
--- NOTE | 2017-04-24 10:48 | NUR ---
UP AMBULATING HALLWAY. GAIT STEADY.
--- NOTE | 2017-04-24 17:20 | NUR ---
WITHOUT CHANGES OR DISTRESS NOTED AT THIS TIME. DENIES NEEDS.
--- NOTE | 2017-04-24 23:43 | NUR ---
PT AMBULATING HALLS AT 1845 HRS. PT USING CANE. GAIT EVEN AND STEADY. ASSESSMETN COMPELTEDA T 2005 HRS. VSS. NUMEROUS SCABS NOTED TO LOWER LEGS BILAT. LUNGS DIMINISHED IN BASES BILAT. PM FSBS 110. PT REFUSED PM NPH. PM MEDS GIVEN. PT CURRENTLY RESTING WITH EYES CLOSED. RESP EVEN AND REGULAR. SR UP X2,CALL LIGHT WITHIN REACH.
--- NOTE | 2017-04-25 02:10 | NUR ---
PT RESTING WITH EYES CLOSED. RESP EVEN AND REGULAR. SR UP X2, CALL LIGHT WITHIN REACH.
[2017-04-25 04:00] VITALS: BP 122/56
--- NOTE | 2017-04-25 04:35 | NUR ---
PT RESTING WITH EYES CLOSED. RESP EVEN AND REGULAR. SR UP X2, CALL LIGHT WITHIN REACH.
--- NOTE | 2017-04-25 08:14 | NUR ---
ASSESSMENT COMPLETED. NO TELEMERTY OR O2. AMBULATING IN HALLWAY. DENIES ANY NEEDS.WILL MONITOR
[2017-04-25 08:57] VITALS: BP 145/63
--- NOTE | 2017-04-25 11:03 | NUR ---
UP WALKING IN HALLS. NO APPARENT DISTRESS. WILL CONTINUE TO MONITOR.
[2017-04-25 11:58] VITALS: BP 134/58
--- NOTE | 2017-04-25 13:13 | NUR ---
Patient Name: ELLIOT FOX Encounter No: [id number] : 1955 Primary Insurance: HUMANA CHOICE PPO MCR ADVANT Anticipated DC Date: 04-21-2017 Planned Disposition: [facility], [facility] External Planned Provider: TO BE DETERMINED DCP follow-up note: CM RECEIVED CALL FROM MITRA OF [facility], SHE HAD RECEIVED CM'S EMAIL REQUEST FOR PLACEMENT, REPORTS NOTHING AVAILABLE NOW OR IN THE FORSEEABLE FUTURE. CM CALLED [facility] [phone], PHONE LINE CONSISTANTLY BUSY. CM CALLED [facility] [place], , SPOKE TO NILDA WHO REPORTS THEY HAVE ONE BED AVAILABLE; WITH PT NOT BEING ELIGIBLE FOR MEDICAID, PRIVATE PAY RATE IS $1,100 PER MONTH. CM CALLED MARCIA MURDOCK, , LEFT MESSAGE WITH DETAILS ABOVE AND REQEUSTED RETURN CALL. CM WAITING [facility] ASSISTANCE WITH EMERGENCY OR SOIL SAMPLER CARE PLACEMENT IN [facility] OR OTHER FACILITY THAT CAN MEET PT'S NEEDS. ADULT PROTECTIVE SERVICES HAS TAKEN HOLD ON PATIENT. CHANCE ANTON, CASE MANAGEMENT
[2017-04-25 16:13] VITALS: BP 141/63
--- NOTE | 2017-04-25 19:30 | NUR ---
PT ASLEEP IN BED. AWAKENED TO ASSESS. ASSESSMENT COMPLETED. WILL CONTINUE TO MONITOR.
--- NOTE | 2017-04-25 21:00 | NUR ---
PT ASLEEP IN BED. WILL CONTINUE TO MONITOR
[2017-04-25 21:16] VITALS: BP 122/55
[2017-04-25 23:55] VITALS: BP 124/44
--- NOTE | 2017-04-26 01:00 | NUR ---
PT WOKE UP AND SAID HIS BLOOD SUGAR WAS MESSED UP. CHECKED IT WAS 53 GAVE HIM SOME MILK AND SOME ICE CREAM.
--- NOTE | 2017-04-26 03:00 | NUR ---
PT SLEEPING IN BED WITH LIGHTS OFF. WILL CONTINUE TO MONITOR.
[2017-04-26 03:56] VITALS: BP 153/75
[2017-04-26 05:58] LABS: BASOPHILS 0.3 % (0-2); EOSINOPHILS 0.9 % (0-7); HEMATOCRIT 38.3 % (42.0-54.0); HEMOGLOBIN 12.7 g/dL (13.5-17.5); IMMATURE GRANULOCYTES 0.1 % (0-5); LYMPHOCYTES 37.2 % (15-50); MCH 31.8 pg (26.0-34.0); MCHC 33.2 g/dL (31.0-37.0); MEAN PLATELET VOLUME 10.8 fL (7.4-10.4); MONOCYTES 10.6 % (2-11); NEUTROPHILS 50.9 % (40-80); PLATELET COUNT 187 10x3/uL (130-400); RBC 3.99 10x6/uL (4.20-6.10); RDW 13.6 % (11.5-14.5); WBC 6.9 10x3/uL (4.8-10.8)
[2017-04-26 06:28] LABS: ALBUMIN 2.6 g/dL (3.4-5.0); ALKALINE PHOSPHATASE 63 U/L (46-116); ALT (SGPT) 15 U/L (10-68); CALC OSMOLALITY 274 mosm/kg (275-300); CALCIUM 8.4 mg/dL (8.5-10.1); CARBON DIOXIDE 32.8 mmol/L (21.0-32.0); CHLORIDE - SERUM 101 mmol/L (98-107); CREATININE - SERUM 0.9 mg/dL (0.6-1.3); POTASSIUM - SERUM 4.9 mmol/L (3.5-5.1); PROTEIN - SERUM 5.7 g/dL (6.4-8.2); SODIUM 136 mmol/L (136-145); UREA NITROGEN 27 mg/dL (7-18); eGFR NON AFRICAN AMERICAN > 90 mL/min (90-120)
[2017-04-26 06:38] LABS: GLUCOSE 60 mg/dL (74-106)
--- NOTE | 2017-04-26 07:30 | NUR ---
PT AMBULATING IN [place] DENIES ANY NEEDS NAD NOPTED
--- NOTE | 2017-04-26 07:45 | NUR ---
ASSESSMENT COMPLETED.DENIES ANY NEEDS. SR UP WITH CALL LIGHT IN REACH.
[2017-04-26 07:54] VITALS: BP 147/78
[2017-04-26 11:50] VITALS: BP 159/68
[2017-04-26 16:37] VITALS: BP 131/61
--- NOTE | 2017-04-26 17:53 | NUR ---
AMBULATING IN [place] [address], GAIT STEADY. DENIES ANY NEEDS
[2017-04-26 20:18] VITALS: BP 116/56
--- NOTE | 2017-04-26 21:17 | NUR ---
INITIAL ROUNDS MADE. PT SITTING UP IN BED WATCHING TV. NO NEEDS OR C/O AT THIS TIME. CALL LIGHT IN REACH. WILL CONT TO MONITOR.
--- NOTE | 2017-04-27 00:06 | NUR ---
HUMAN SERVICE TECHNICIAN AT BEDSIDE FOR VS. NEEDS ADDRESSED AT THIS TIME. CALL LIGHT IN REACH. WILL CONT TO MONITOR.
[2017-04-27 00:33] VITALS: BP 119/66
[2017-04-27 05:08] VITALS: BP 120/55
--- NOTE | 2017-04-27 07:40 | NUR ---
PT AMBULATING IN HALLWAY. PT DENIES PAIN OR FURTHER NEEDS AT THIS TIME.
[2017-04-27 08:00] VITALS: BP 132/58
--- NOTE | 2017-04-27 08:55 | NUR ---
PT SITTING UP ON SIDE OF BED AFTER AMBULATING IN HALLWAY. PHYSICAL ASSESSMENT DONE, SEE SHIFT ASSESSMENT. AM MEDS PASSED, SEE EMAR. PT AAO X 4 AND ANSWERING QUESTIONS APPROPRIATLEY AT THIS TIME.
--- NOTE | 2017-04-27 10:30 | NUR ---
PT SITTING UP ON SIDE OF BED. PT DENIES PAIN OR NEEDS AT THIS TIME.
--- NOTE | 2017-04-27 10:57 | NUR ---
Patient Name: ELLIOT FOX Encounter No: [id number] : 1955 Primary Insurance: HUMANA CHOICE PPO MCR ADVANT Anticipated DC Date: 04-21-2017 Planned Disposition: ASSISTED LIVING [facility] External Planned Provider: ADULT PROTECTIVE SERVICES AND DIVISION OF DEVELOPMENTAL DISABILITIES SERVICES DCP follow-up note: CM CALLED AND SPOKE TO [facility] ADULT SHOWER SCREEN INSTALLER MARCIA MURDOCK, ; MARCIA DID RECEIVE FAXED UPDATE FROM YESTERDAY. MARCIA REPORTS ANDIE, [facility] IS SEEKING HDC PLACEMENT; MARCIA IS CONTINUING TO TRY TO FIND PLACEMENT FOR PT AND REPORTS HE HAS CALLED ALL ASSISTED LIVING FACILITIES ON HIS LIST WITHOUT SUCCESS. MARCIA REPORTS HIS SUPERVISORS ARE AWARE OF THE SITUATION AND ALL THAT CAN BE DONE IS BEING DONE AT THIS TIME. PT ACTUALLY RECEIVES $1025 MONTHLY SOCIAL SECURITY AND IS NOT ELIGIBLE FOR ASSITING LIVING MEDICAID HE IS NOT 65 YEARS OF AGE; S IS NOT ABLE TO OBTAIN RECORDS TO VERIFY PT'S DISABILITY STARTED BEFORE AGE 18 THEREFORE CANNOT GET ELIGIBILITY FOR WAIVER SERVICES TO PAY FOR ASSISTED LIVING. MARCIA CONTINUES TO SEEK ASSISTED LIVING THAT HAS AN OPENING AND WILL TAKE PT FOR LESS THAN PRIVATE PAY RATE. MARCIA ASSURES CM THAT HE WILL NOTIFY CM SOON PLACEMENT IS LOCATED. ADULT PROTECTIVE SERVICES AND DIVISION OF DEVELOPMENTAL DISABILITIES SERVICES CONTINUE SEEKING PLACEMENT FOR PT. CM HAS NO OTHER NUMBERS TO CALL TO ASSIST IN SEEKING PLACEMENT FOR PT. CM TO FOLLOW AND ASSIST NEEDED. Mac aCmacho, CASE MANAGEMENT
--- NOTE | 2017-04-27 11:30 | NUR ---
PT SITTING UP ON SIDE OF BED. PT REPORTS PAIN OF 9/10 IN [place]EHEAD AND STATES, "IT IS FROM MY FALL". TYLENOL REQUESTED.
--- NOTE | 2017-04-27 11:57 | NUR ---
TYLENOL 500MG GIVEN PO FOR PT PAIN. VISITOR AT BEDSIDE. BOTH DENY NEEDS AT THIS TIME.
[2017-04-27 12:00] VITALS: BP 159/64
--- NOTE | 2017-04-27 13:05 | NUR ---
Nutrition follow-up: Diet: ADA consistent CHO PO intake 100% of meals Labs reviewed +BM RDN following.
--- NOTE | 2017-04-27 13:12 | NUR ---
PT AMBULATING IN HALLWAY AND REQUESTS TUMS FOR HEARTBURN. PT DENIES FURTHER NEEDS AT THIS TIME.
--- NOTE | 2017-04-27 15:00 | NUR ---
PT SITTING UP ON SIDE OF BED. DENIES NEEDS OR PAIN.
[2017-04-27 15:39] VITALS: BP 126/60
--- NOTE | 2017-04-27 16:15 | NUR ---
NS DCD. PT AMBULATES BACK TO BED. LABORED BREATHING NOTED. O2 SAT 97% ON 3L/MIN. PT DENIES CHEST PRESSURE. LUNG SOUNDS DIMINISHED ON LEFT SIDE, CLEAR ON RIGHT.
--- NOTE | 2017-04-27 17:15 | NUR ---
PT UP TO RESTROOM TO OBTAIN URINE SPECIMEN. PT MISSED THE SPECIMEN CUP AND [place] HAT AND VOIDS UNKNOWN AMOUNT IN TOILET. CLEAN [place] HAT PROVIDED AND PT INSTRUCTED TO VOID INTO HAT NEXT TIME SHE NEEDS TO VOID.
--- NOTE | 2017-04-27 17:29 | NUR ---
PT AMBULATING AROUND HALLWAY AND DENIES NEEDS AT THIS TIME
--- NOTE | 2017-04-27 18:33 | NUR ---
AMBULATING IN HALLWAY. SANDWICH TRAY PROVIDED PER REQUEST. DENIES FURTHER NEEDS.
--- NOTE | 2017-04-27 19:15 | NUR ---
RECEIVED REPORT, PT SLEEPING, BED IS LOW, SRX2, CALL LIGHT IN REACH, WILL CONTINUE PLAN OF CARE
[2017-04-27 20:04] VITALS: BP 109/54
--- NOTE | 2017-04-27 20:27 | NUR ---
CPC AT BEDSIDE TO OBTAIN VITALS, CALL LIGHT IN REACH. WILL CONTINUE WITH PLAN OF CARE.
[2017-04-28 00:24] VITALS: BP 140/62
[2017-04-28 04:32] VITALS: BP 131/55
--- NOTE | 2017-04-28 07:30 | NUR ---
PT ASLEEP, RESPIRATIONS UNLABORED AND EQUAL. BED IN LOWEST POSITION, CALL LIGHT IN REACH, ROOM FREE FROM CLUTTER, WILL CTM.
[2017-04-28 07:59] VITALS: BP 136/61
[2017-04-28 12:02] VITALS: BP 141/62
[2017-04-28 15:52] VITALS: BP 122/54
--- NOTE | 2017-04-28 18:41 | NUR ---
PT RESTING QUIETLY, PAIN MEDS GIVEN, RR EVEN AND UNLABORED, WILL GIVE REPORT ON PT CONDITION FOR THE DAY.
--- NOTE | 2017-04-28 19:50 | NUR ---
RESUMED CARE OF PT, LYING IN BED RESPIRATIONS EVEN AND UNLABORED ON ROOM AIR. NO NEEDS NOTED AT THIS TIME. CALL LIGHT IN REACH. WILL CONTINUE TO MONITOR. SEE NURSE ASSESSMENT.
[2017-04-28 20:40] VITALS: BP 91/42
--- NOTE | 2017-04-28 23:40 | NUR ---
CYLINDER DIE MACHINE HELPER AT BEDSIDE TO OBTAIN VITALS, CALL LIGHT IN REACH. WILL CONTINUE WITH PLAN OF CARE.
[2017-04-29 00:03] VITALS: BP 125/61
[2017-04-29 04:17] VITALS: BP 109/54
[2017-04-29 08:20] VITALS: BP 129/68
--- NOTE | 2017-04-29 09:00 | NUR ---
UP AMBULATING HALLWAY. GAIT STEADY.
--- NOTE | 2017-04-29 12:13 | NUR ---
IV AND TELEMETRY DCD. DC PLANS GIVEN. UNDERSTANDING VOICED. ESCORTED TO CAR BY W/C.
[2017-04-29 12:31] VITALS: BP 139/67
--- NOTE | 2017-04-29 13:53 | NUR ---
UP SOB WITH PT ASSIST.
--- NOTE | 2017-04-29 13:54 | NUR ---
STATES HE FEELS DIZZY. INSTRUCTED TO STAY IN BED WITH CALL LIGHT IN REACH.
--- NOTE | 2017-04-29 15:43 | NUR ---
Patient Name: ELLIOT FOX Encounter No: [id number] : 1955 Primary Insurance: [employer] CHOICE PPO MCR ADVANT Anticipated DC Date: 04-21-2017 [facility] External Planned Provider: TO BE DETERMINED BY ADULT PROTECTIVE SERVICES DCP follow-up note: CM RECEIVED COURT ORDER FOR PT'S APPEARANCE ON 05-02-17 AT 1500 AT THE [facility]. CM SPOKE TO CM RECEPTION CLERK MILANA WHO DIRECTED CM TO EXPLORE THE CAPTION IN THE EXPARTE ORDER FOR EMERGENCY CUSTODY, #3, WHICH STATES THAT [facility] IS THE CAREGIVER, RESPONSIBLE FOR THE PROTECTION, CARE OR CUSTODY OF THE RESPONDENT. CM CALLED [facility] SUPERVISOR VARNISH JESSIKA SHERMAN, AND ASKED JESSIKA ABOUT THIS CAPTION. JESSIKA EXPLAINED THAT THE WORD CUSTODY WAS IN ERROR AND WILL BRING THIS TO THE COURTS ATTENTION TUESDAY FOR REMOVAL. JESSIKA REPORTS THAT THE PT IS NOT REQUIRED TO ATTEND THE HEARING BUT IS NICE IF PT IS ABLE. DWAYNE EXPLAINED THAT PT HAS NO PHYSICAL LIMITATIONS THAT WOULD KEEP PT FROM APPEARING. JESSIKA WILL NOTIFY APS WORKER MARCIA MURDOCK FOR TRANSPORTATION OF PT TO COURT. CM CALLED MARCIA MURDOCK OF ADULT PROTECTIVE SERVICES TWICE THROUGH THE DAY, LEAVING MESSAGES BOTH TIMES REQUESTING CLAIFICATION THAT MARCIA WILL BE TAKING PT TO COURT AND WHAT TIME TO HAVE PT READYN WELL UPDATE ON PROGRESS TOWARD PATIENT PLACEMENT, . CM DID NOT RECEIVE RETURN CALL ON 04-29-17 DURING BUSINESS HOURS. CM SPOKE TO PT AND UPDATED ON WHAT IS GOING ON. PT REPORTS HE DOES NOT REALLY UNDERSTAND ANY OF THIS AND ASKED CM TO CALL RICKY HARTMANN AND PROVIDED CM NUMBER. CM CALLED RICKY HARTMANN WHO ASSURED CM THAT HE WAS ALREADY AWARE OF THE CUSTODY PROCEEDINGS, THAT PT DID NOT HAVE TO BE THERE AND THAT HE HAS EXPLAINED ALL OF THIS TO THE PATIENT. CM NOTIFIED PT WHO DENIED FURTHER NEEDS AT THIS TIME. PT HAS PROBABLE CAUSE HEARING WITH [facility]ECTIVE [facility] ON 05-02-17 AT 1500 HOURS; HE IS NOT REQUIRED TO ATTEND AND ADULT PROTECTIVE SERVICES WORKER MARCIA MURDOCK MAY WHEELCHAIR DRIVER PT FOR TRANSPORTATION TO AND FROM THE HEARING. Mac Camacho, CASE MANAGEMENT
[2017-04-29 16:40] VITALS: BP 146/65
[2017-04-29 20:00] VITALS: BP 131/55
--- NOTE | 2017-04-29 21:05 | NUR ---
HS MEDS GIVEN, BS 56. SANDWHICH TRAY AND CARTON OF MILK GIVEN HS SNACK. PT DENIES PAIN OR NEEDS, BED LOW, CL IN REACH.
--- NOTE | 2017-04-30 00:56 | NUR ---
RESTING WITH EYES CLOSED, RESPERATIONS EVEN, NO S/S DISTRESS NOTED.
[2017-04-30 08:00] VITALS: BP 142/69
[2017-04-30 12:00] VITALS: BP 142/66
--- NOTE | 2017-04-30 15:14 | NUR ---
RESTING QUIETLY RESP UNLABORED NAD NOTED
[2017-04-30 15:43] VITALS: BP 118/56
--- NOTE | 2017-04-30 16:51 | NUR ---
UP IN BEDSIDE CHAIR. C/O HEADACHE. TYLENOL GIVEN FOR RELIEF
[2017-04-30 20:00] VITALS: BP 174/67
--- NOTE | 2017-04-30 20:15 | NUR ---
INITIAL ROUNDS, PT LISTLESSLY LAYING IN BED WITH C/O FEELING LIKE HIS BLOOD SUGAR IS LOW. FSBS 41. PT DRANK 2 CARTOONS OF ORANGE JUICE AND ATE 2 BAGS OF COOKIES. HE THEN LAID BACK ON THE BED AND C/O HOW HOT HIS ROOM WAS. ADJUSTED AIR TO MAKE ROOM COOLER. ENCOURAGED PT TO EAT A MORE COMPLEX CARB/PROTEIN TO HELP KEEP HIS SUGAR LEVEL STABLE AND HE IS NOW EATING A TURKEY SANDWICH WITH MORE JUICE. PROVIDED HS MEDS. WILL MONITOR FSBS AGAIN AFTER HE HAS EATEN MEAL. CPOC.
--- NOTE | 2017-04-30 23:25 | NUR ---
LINENS CHANGED ON BED. PT HAS BEEN SITTING IN BEDSIDE CHAIR. ALERT/ORIENTED. FEELING BETTER.
--- NOTE | 2017-05-01 02:14 | NUR ---
UP AND AMBULATING AROUND UNIT. NO FURTHER BLOODSUGAR ISSUES. CPOC.
--- NOTE | 2017-05-01 03:12 | NUR ---
PT NOW SITTING UP AT NURSES STATION AND ASKING FOR A PHONE BOOK TO CALL HIS NEICE. STAFF ASSISTING, BUT UNABLE TO LOCATE NUMBER. CPOC.
[2017-05-01 04:00] VITALS: BP 164/59
--- NOTE | 2017-05-01 04:02 | NUR ---
PT NOW REQUESTING TUMS. TUMS GIVEN.
--- NOTE | 2017-05-01 07:35 | NUR ---
ASSESSMENT COMPLETED. DENIES ANY NEEDS. NO TELEMERTY AND NO IV. UP AB JOYCE. BLOOD SUGAR 124. UP IN ROOM.
[2017-05-01 08:00] VITALS: BP 155/65
[2017-05-01 11:35] VITALS: BP 119/59
[2017-05-01 15:43] VITALS: BP 131/81
--- NOTE | 2017-05-01 17:41 | NUR ---
LYING QUIETLY. DENIES ANY NEEDS. SR UP WITH CALL LIGHT IN REACH
--- NOTE | 2017-05-01 19:15 | NUR ---
INITIAL ROUNDS MADE. PT LYING IN BED RESTING WELL WITH EYES CLOSED, CALL LIGHT IN REACH. WILL CONT TO MONITOR.
[2017-05-01 20:00] VITALS: BP 136/60
[2017-05-02 04:00] VITALS: BP 112/74
--- NOTE | 2017-05-02 08:31 | NUR ---
ASSESSMENT DONE. DENIES NEEDS.
[2017-05-02 08:40] VITALS: BP 118/62
--- NOTE | 2017-05-02 10:38 | NUR ---
UP AMBULATING HALLWAY. GAIT STEADY.
[2017-05-02 12:39] VITALS: BP 143/56
--- NOTE | 2017-05-02 15:40 | NUR ---
Patient Name: ELLIOT FOX Encounter No: [id number] : 1955 Primary Insurance: [employer] CHOICE PPO MCR ADVANT Anticipated DC Date: 04-21-2017 Planned [facility] External Planned Provider: TO BE DETERMINED BY ADULT PROTECTIVE SERVICES DCP follow-up note: CM SPOKE TO PT IN ROOM WHO REPORTS NOT HEARING FROM HIS WORKER FROM ADULT PROTECTIVE SERVICES TODAY. PT REPORTS HE DOES NOT HAVE TO GO TO COURT BECAUSE RICKY MARY KATE SAYS SO. CM CALLED MARCIA MURDOCK, , LEFT MESSAGE ASKING IF HE WAS GOING TO TAKE PT TO COURT OR NOT CM HAS NOT RECEIVED NOTIFICATION TODAY TO PROVIDE TO NURSING STAFF OR PATIENT. CM ALSO ASKED FOR PLACEMENT UPDATE. CM RECEIVED CALL FROM RICKY HARTMANN WHO INFORMED CM THAT PT HAS CALLED HIM AND RICKY WANTED TO REMIND CM THAT PT DOES NOT HAVE TO APPEAR IN COURT. CM EXPLAINED THAT APS WORKER MATHIEU INDICATED TUESDAY THAT HE WOULD COOKIE BREAKER PT AND TAKE HIM TO THE HEARING THERE ARE NO REASONS FOR PT NOT TO APPEAR; CM WAS SIMPLY CHECKING TO SEE IF PT HAD HEARD FROM HIS WORKER. RICKY REPORTS THAT HE (RICKY) HAS NOT HEARD FROM APS IN AT LEAST 10 DAYS AND THINKS THAT THEY SHOULD HAVE PLACEMENT BY NOW. CM ASSURED MR. HARTMANN THAT DWAYNE HAS BEEN IN CONTACT WITH ADULT PROTECTIVE SERVICES REGARDING PLACEMENT FOR PT. RICKY ASKED CM TO CALL HIM IF CM NEEDS ANYTHING FOR PT. CM WAITING RETURN CALL FROM MARCIA MURDOCK OF [facility] ADULT PROTECTIVE SERVICES. Mac Camacho, CASE MANAGEMENT
[2017-05-02 16:51] VITALS: BP 137/61
--- NOTE | 2017-05-02 17:26 | NUR ---
WITHOUT CHANGES OR DISTRESS NOTED AT THIS TIME. DENIES NEEDS.
[2017-05-02 19:00] VITALS: BP 111/49
--- NOTE | 2017-05-02 19:20 | NUR ---
ASSESSMENT COMPLETE. AAO. S1S2. RR EQUAL DIMINISHED BIALATERALLY IN THE LOWER LOBES. PT GETS UP OUT OF BED WITHOUT ASSISTANCE. AMBULATES; GAIT STEADY. PERRLA. INDUSTRIAL WORKERS STRENGTH +5. SKIN PINK. SCABS/SORES AND NOTED MINUTE BRUISING BILATERALLY TO LOWER EXTREMITIES. RADIAL AND PEDAL PULSES PALPATED +2. NO IV ACCESS.
--- NOTE | 2017-05-02 20:49 | NUR ---
TOOK MEDS PO WITHOUT DIFFICULTY.
--- NOTE | 2017-05-02 21:47 | NUR ---
PT C/O ITCHING ON FEET AND LEGS. REQUEST BENEDRYL; NOT ON PT EMAR. WILL ADDRESS IN THE MORNING WITH
--- NOTE | 2017-05-02 22:52 | NUR ---
FEET/LEGS WASHED. PETROLEUM JELLY APPLIED TO FEET/LEGS. PT STATED THAT ALOE VERA MAKES THE ITCHING WORSE.
--- NOTE | 2017-05-02 23:51 | NUR ---
PT RESTING; EYES CLOSED. NO DISTRESS NOTED. CALL LIGHT IN REACH. WILL CONTINUE TO MONITOR.
[2017-05-03] VITALS: BP 128/51
[2017-05-03 04:00] VITALS: BP 117/67
--- NOTE | 2017-05-03 05:33 | NUR ---
PT AWAKE AND ALERT. DENIES PAIN. C/O ITCH BILATERALLY IN LOWER EXTREMITIES.
[2017-05-03 06:01] LABS: CALC OSMOLALITY 271 mosm/kg (275-300); CALCIUM 8.5 mg/dL (8.5-10.1); CARBON DIOXIDE 30.1 mmol/L (21.0-32.0); CHLORIDE - SERUM 98 mmol/L (98-107); POTASSIUM - SERUM 5.2 mmol/L (3.5-5.1); SODIUM 134 mmol/L (136-145); UREA NITROGEN 29 mg/dL (7-18); eGFR NON AFRICAN AMERICAN 81 mL/min (90-120)
[2017-05-03 06:10] LABS: GLUCOSE 61 mg/dL (74-106)
[2017-05-03 08:01] LABS: BASOPHILS 0.3 % (0-2); HEMATOCRIT 37.3 % (42.0-54.0); HEMOGLOBIN 12.7 g/dL (13.5-17.5); IMMATURE GRANULOCYTES 0.3 % (0-5); LYMPHOCYTES 39.8 % (15-50); MCH 32.2 pg (26.0-34.0); MCV 94.4 fL (80.0-100.0); MONOCYTES 13.9 % (2-11); NEUTROPHILS 44.7 % (40-80); PLATELET COUNT 200 10x3/uL (130-400); RBC 3.95 10x6/uL (4.20-6.10); RDW 13.7 % (11.5-14.5)
--- NOTE | 2017-05-03 08:11 | NUR ---
ASSESSMENT DONE. DENIES NEEDS.
[2017-05-03 08:23] VITALS: BP 134/62
--- NOTE | 2017-05-03 10:29 | NUR ---
UP TO BR. NO NEEDS INDICATED. WILL MONITOR.
[2017-05-03 12:40] VITALS: BP 138/73
[2017-05-03 16:15] VITALS: BP 120/66
--- NOTE | 2017-05-03 17:06 | NUR ---
WITHOUT CHANGES OR DISTRESS NOTED AT THIS TIME. DENIES NEEDS.
[2017-05-03 19:00] VITALS: BP 119/52
--- NOTE | 2017-05-03 19:40 | NUR ---
RESUMED CARE OF PT, LYING IN BED WITH EYES CLOSED RESPIRATIONS EVEN AND UNLABORED ON ROOM AIR. CALL LIGHT IN REACH. NO NEEDS NOTED AT THIS TIME. WILL CONTINUE TO MONITOR. SEE NURSE ASSESSMENT.
--- NOTE | 2017-05-03 22:21 | NUR ---
NIGHT MEDS GIVEN, FSBS 201. NPH 30 UNITS ADMINISTERED. NO FURTHER NEEDS AT THIS TIME.
[2017-05-04] VITALS (7 sets, daily range): BP systolic 88–146; BP diastolic 47–78
--- NOTE | 2017-05-04 06:47 | NUR ---
NO CHANGES FROM PREVIOUS ASSESSMENT, CALL LIGHT IN REACH.
--- NOTE | 2017-05-04 07:30 | NUR ---
PT IN LEFT LATERAL POSITION RESTING WITH EYES CLOSED. RESP. EVEN AND UNLABORED.
--- NOTE | 2017-05-04 08:42 | NUR ---
Patient Name: ELLIOT FOX Encounter No: [id number] : 1955 Primary Insurance: [employer] CHOICE PPO MCR ADVANT Anticipated DC Date: 04-21-2017 Planned Disposition: [facility] External Planned Provider: TO BE DETERMINED BY ADULT PROTECTIVE SERVICES DCP follow-up note: CM CALLED AND LEFT [facility] ADULT MECHANICAL CAR CHECKER MARCIA MURDOCK, ; CM ASKED FOR OUTCOME OF COURT HEARING ON TUESDAY AND PLACEMENT UPDATE. ADULT PROTECTIVE SERVICES AND DIVISION OF DEVELOPMENTAL DISABILITIES SERVICES CONTINUE SEEKING PLACEMENT FOR PT. CM HAS NO OTHER NUMBERS TO CALL TO ASSIST IN SEEKING PLACEMENT FOR PT. CM TO FOLLOW AND ASSIST NEEDED. Mac Camacho, CASE MANAGEMENT
--- NOTE | 2017-05-04 12:35 | NUR ---
PT IN SEMI FOWLERS POSITION. PT STATES, " I AM JUST NOT FEELING REAL WELL TODAY. I AM GETTING SHAKY AND DIZZY AGAIN LIKE LAST NIGHT". PT ENCOURAGED TO REMAIN IN BED. PT CONSUMED ADEQUATE LUNCH FROM TRAY. 1242 FSBS 155
--- NOTE | 2017-05-04 13:00 | NUR ---
VS OBTAINED AND STABLE. PT ENCOURAGED TO REMAIN IN BED AND TO ASK FOR ASSISTANCE IF DIZZINESS CONTINUES.
--- NOTE | 2017-05-04 14:30 | NUR ---
PT IN SEMI FOWLERS POSITION RESTING WITH EYES CLOSED. RESP. EVEN AND UNLABORED. NO DISTRESS NOTED.
--- NOTE | 2017-05-04 16:57 | NUR ---
PT RESTING WITH EYES CLOSED. AROUSES TO VERBAL STIMULATION. FSBS OBTAINED. INSULIN GIVEN, SEE EMAR. PT DENIES PAIN OR NEEDS AT THIS TIME. PER NOHEMY RUANO
--- NOTE | 2017-05-04 18:30 | NUR ---
PT IN SEMI FOWLERS POSITION RESTING WITH EYES CLOSED. RESP. EVEN AND UNLABORED
--- NOTE | 2017-05-04 21:26 | NUR ---
RESTING WITH EYES CLOSED, RESPERATIONS EVEN, NO S/S DISTRESS NOTED.
--- NOTE | 2017-05-04 23:24 | NUR ---
HS MEDS GIVEN WITH FRESH CARTON OF 2% MILK. DENIES PAIN.
--- NOTE | 2017-05-04 23:40 | NUR ---
ANSWERED CL, PT ASKING FOR SANDWHICH, INFORMED PT THAT WE DO NOT HAVE ANY SANDWHICH TRAYS AND THE KITCHEN IS CLOSED, IF HE WOULD LIKE SOMETHING ELSE TO EAT I CAN GET HIM, PUDDING, JELLO, APPLE SUACE, ICE CREAM, GRAHM CRACKERS. PT DECLINED STATING THAT HE HAS TO HAVE A SANDWHICH WITH HIS SEIZURE MEDS BECHAUSE IF HE DOESNT EAT A SANDWICH THEN HE BE THROWN INTO HAVING A SEIZURE. APPOLIGIZED TO PT AND AGAIN INFORMED HIM THAT I DONT HAVE ANY SANDWICHES BUT IF HE'D LIKE SOMETHING ELSE TO EAT THAN I WOULD BE MORE THAN HAPPY TO GET HIM SOMETHING FROM [facility].
--- NOTE | 2017-05-04 23:54 | NUR ---
DIET MESSAGE SENT ASKING IF THEY CAN SEND UP A TURKEY SANDWHICH NIGHTLY FOR PTS DIABETIC HS SNACK.
--- NOTE | 2017-05-04 23:55 | NUR ---
SITTING UP ON SIDE OF BED, DENIES NEEDS.
[2017-05-05] VITALS: BP 137/64
--- NOTE | 2017-05-05 00:11 | NUR ---
ANSWERED CL, PT SITTING UP ON SIDE OF BED, STATED THAT "I AM HAVING A SEIZURE ON MY LEFT SIDE ( HE IS HOLDING UP HIS LEFT HAND) RIGHT NOW BECAUSE I DIDNT GET A SANDWHICH WITH MY SEIZURE MEDS" TOLD PT TO LAY BACK AND RELAX AND SORRY THAT I DIDNT HAVE ANY SANDWICHES TO GIVE HIM, PT THEN STATED THAT HE WILL JUST HAVE TO GO AHEAD AND GO THROUGH THE SEIZURE THEN. INFORMED PT THAT I WILL CHECK BACK IN ON HIM IN A LITTLE BIT.
--- NOTE | 2017-05-05 02:36 | NUR ---
RESTING WITH EYES CLOSED, RESPERATONS EVEN, NO S/S DISTRESS NOTED.
--- NOTE | 2017-05-05 03:12 | NUR ---
DISASTER RECOVERY SPECIALIST AT BEDSIDE TO OBTAIN VITALS, CALL LIGHT IN REACH. WILL CONTINUE TO MONITOR.
[2017-05-05 04:34] VITALS: BP 108/48
--- NOTE | 2017-05-05 07:30 | NUR ---
ASSESSMENT COMPLETED. DENIES ANY NEEDS. NO TELEMERTY OR O2. AMBULATING IN [place]. NO NEEDS VOICED
[2017-05-05 08:19] VITALS: BP 131/58
[2017-05-05 12:06] VITALS: BP 127/60
--- NOTE | 2017-05-05 13:20 | NUR ---
RESTING QUIETLY RESP UNLABORED NAD NOTED
--- NOTE | 2017-05-05 13:53 | NUR ---
Nutrition follow-up: Diet: ADA consistent CHO PO Intake 100% of meals Labs reviewed Wt: 210# RDN visited with pt during meal rounds. Pt happy with meals. RDN helped pt fill out menus. RDN following.
[2017-05-05 14:05] LABS: ANION GAP 9.8 mmol/L (8-16); CALCIUM 8.4 mg/dL (8.5-10.1); CARBON DIOXIDE 31.9 mmol/L (21.0-32.0); CREATININE - SERUM 1.3 mg/dL (0.6-1.3); POTASSIUM - SERUM 4.7 mmol/L (3.5-5.1)
[2017-05-05 15:47] VITALS: BP 124/62
--- NOTE | 2017-05-05 15:47 | NUR ---
AMBUTLATING. GAIT STEADY. NO NEEDS VOICED
--- NOTE | 2017-05-05 18:19 | NUR ---
UP IN ROOM. DENIES ANY NEEDS. CALL LIGHT IN REACH WITH SR UP
--- NOTE | 2017-05-05 19:25 | NUR ---
PT RESTING ON LEFT SIDE, AWAKENS TO VERBAL STIMULI. ASSESSMENT COMPLETE. PT DENIES NEEDS AT THIS TIME.
[2017-05-05 20:00] VITALS: BP 141/62
--- NOTE | 2017-05-05 21:44 | NUR ---
HS MEDS GIVEN, BS 103, NO COVERAGE GIVEN. SANDWHICH TRAY AND CARTON OF MILK GIVEN FOR HS SNACK. PT DENIES PAIN OR OTHER NEEDS.
--- NOTE | 2017-05-06 01:38 | NUR ---
RESTING WITH EYES CLOSED, RESPERATIONS EVEN, NO S/S DISTRESS NOTED.
[2017-05-06 04:00] VITALS: BP 134/59
--- NOTE | 2017-05-06 07:31 | NUR ---
ASSESSMENT COMLETED. ALERT AND ORIENTED. PT HAS NO O2 OR TELEMERTY. NO IV. DENIES ANY NEEDS. UP AB JOYCE.
[2017-05-06 08:18] VITALS: BP 126/54
--- NOTE | 2017-05-06 09:17 | NUR ---
WATCHING TV IN ROOM WITH CALL LIGHT IN REACH NO DISTRESS NOTED. PATIENT DENIED PAIN OR NEEDS WILL CONTINUE PLAN OF CARE
[2017-05-06 11:44] VITALS: BP 138/56
--- NOTE | 2017-05-06 12:46 | NUR ---
LYING IN BED WITH EYES CLOSED. NO DISTRESS NOTED
[2017-05-06 15:28] VITALS: BP 132/58
--- NOTE | 2017-05-06 15:43 | NUR ---
RESTING QUIETLY IN BED. WILL CONTINUE TO MONITOR.
--- NOTE | 2017-05-06 16:49 | NUR ---
Patient Name: ELLIOT FOX Encounter No: [id number] : 1955 Primary Insurance: [employer] CHOICE PPO MCR ADVANT Anticipated DC Date: 04-21-2017 Planned Disposition: [facility] External Planned Provider: TO BE DETERMINED BY ADULT PROTECTIVE SERVICES DCP follow-up note: CM CALLED AND LEFT MESSAGE FOR [facility] ADULT AVIONICS SHOP SUPERVISOR MARCIA MURDOCK, ; CM ASKED FOR PLACEMENT UPDATE. CM FAXED UPDATE TO MARCIA MURDOCK AT ADULT PROTECTIVE SERVICES. ADULT PROTECTIVE SERVICES AND DIVISION OF DEVELOPMENTAL DISABILITIES SERVICES CONTINUE SEEKING PLACEMENT FOR PT. CM HAS NO OTHER NUMBERS TO CALL TO ASSIST IN SEEKING PLACEMENT FOR PT. CM TO FOLLOW AND ASSIST NEEDED. Mac Camacho, CASE MANAGEMENT
--- NOTE | 2017-05-06 18:48 | NUR ---
UP ON SIDE OF BED. C/O SHAKING. BLOOD SUGAR 149
[2017-05-06 19:00] VITALS: BP 132/72
--- NOTE | 2017-05-06 21:11 | NUR ---
HS MEDS GIVEN, BS 130, NO COVERAGE GIVEN. TURKEY SANDWHICH AND CARTON OF 2% MILK GIVEN FOR HS SNACK.
[2017-05-07] VITALS: BP 132/59
--- NOTE | 2017-05-07 01:40 | NUR ---
RESTING WITH EYES CLOSED, RESPERATIONS EVEN, NO S/S DISTRESS NOTED.
[2017-05-07 04:00] VITALS: BP 113/59
--- NOTE | 2017-05-07 08:02 | NUR ---
ASSESSMENT DONE, DENIES NEEDS.
--- NOTE | 2017-05-07 08:06 | NUR ---
RESTS IN BED WITH EYES CLOSED. CALL LIGHT IN REACH. WILL MONITOR NEEDS.
[2017-05-07 12:33] VITALS: BP 124/77
[2017-05-07 16:30] VITALS: BP 120/74
--- NOTE | 2017-05-07 16:48 | NUR ---
WITHOUT CHANGES OR DISTRESS NOTED AT THIS TIME. DENIES NEEDS.
[2017-05-07 20:00] VITALS: BP 134/65
--- NOTE | 2017-05-07 21:10 | NUR ---
HS MEDS GIVEN WITH CARTON OF MILK. BS 138, SANDWICH TRAY GIVEN AT HS SNACK. TYLENOL 1 TAB GIVEN FOR C/O GENERALIZED DISCOMFORT.
--- NOTE | 2017-05-07 21:41 | NUR ---
PT AMBULATING IN [place] AROUND NURSES STATION, GAIT STEADY.
--- NOTE | 2017-05-08 03:31 | NUR ---
RESTING WITH EYES CLOSED, RESPERATIONS EVEN, NO S/S DISTRESS NOTED.
--- NOTE | 2017-05-08 07:45 | NUR ---
ASSESSMENT DONE. DENIES NEEDS.
[2017-05-08 08:00] VITALS: BP 142/57
--- NOTE | 2017-05-08 08:47 | NUR ---
UP ADLIB IN ROOM. NORMAN NEEDS AT THIS TIME.
[2017-05-08 11:31] VITALS: BP 122/53
[2017-05-08 15:12] VITALS: BP 118/62
--- NOTE | 2017-05-08 17:06 | NUR ---
WITHOUT CHANGES OR DISTRESS NOTED AT THIS TIME. DENIES NEEDS.
--- NOTE | 2017-05-08 19:57 | NUR ---
INITIAL ROUNDS COMPELTED AT 1915 HRS. PT DENIED ANY DISCOMFORT. ASSESSMENT COMPLETED AT 1944 HRS. PT UP AD JOYCE. LUNGS ESSENTIALLY CTA. NO IV. ALERT AND ORIENTED. GAIT STEADY WITH CANE. PT STATES HE WON'T LEAVE ROOM TONIGHT SOMEONE STOLE HIS RED HANKERCHIFS. WILL CONTINUE TO MONITOR. SR UP X2, CALL LIGHT WITHIN REACH.
[2017-05-08 22:00] VITALS: BP 116/47
--- NOTE | 2017-05-08 23:51 | NUR ---
PT RESTING WITH EYES CLOSED. RESP EVEN AND REGULAR. SR UP X2, CALL LIGHT WITHIN REACH.
[2017-05-09] VITALS: BP 105/46
--- NOTE | 2017-05-09 02:27 | NUR ---
PT RESTING WITH EYES CLOSED. RESP EVEN AND REGULAR. SR UP X2, CALL LIGHT WITHIN REACH.
--- NOTE | 2017-05-09 04:51 | NUR ---
PT RESTING WITH EYES CLOSED. RESP EVEN AND REGULAR. SR UP X2,CALL LIGHT WITHIN REACH.
[2017-05-09 05:03] VITALS: BP 126/55
--- NOTE | 2017-05-09 06:20 | NUR ---
VSS THROUGHOUT NIGHT. PT DENEID ANY DISCOMFORT. AM FSBS 136. 5 UNITS REGULAR INSULIN GIVEN AC AM PER ORDERS. NEEDS MET;WILL CONTINUE TO MONITOR.
[2017-05-09 08:00] VITALS: BP 115/48
--- NOTE | 2017-05-09 09:27 | NUR ---
Patient Name: ELLIOT FOX Encounter No: [id number] : 1955 Primary Insurance: [employer] CHOICE PPO MCR ADVANT Anticipated DC Date: 04-21-2017 Planned Disposition[facility] External Planned Provider: TO BE DETERMINED BY ADULT PROTECTIVE SERVICES DCP follow-up note: CM CALLED AND SPOKE TO MARCIA MURDOCK OF [facility] ADULT PROTECTIVE SERVICES, ; CM ASKED FOR PLACEMENT UPDATE. MARCIA REPORTS THAT THE AEROSPACE QUALITY ENGINEER KEPT PT IN CUSTODY OF THE STATE AND EXPECTS THAT ADULT PROTECTIVE SERVICES WILL HAVE PLACEMENT PRIOR TO NEXT COURT DATE. COURT ORDER WAS NOT PREPARED DURING COURT AND MARCIA IS WAITING ON THE WRITTEN ORDER FROM THE COURT. MARCIA REPORTS HIS CORPORATE DIRECTOR TALENT ASSESSMENT IS HELPING WITH PLACEMENT, BUT WAS ON VACATION LAST WEEK. MARCIA REPORTS HIS CORPORATE DIRECTOR TALENT ASSESSMENT SHOULD BE BACK TODAY AND HE IS CHECKING WITH HER REGARDING PROGRESS ON FINDING PLACEMENT FOR PT. ADULT PROTECTIVE SERVICES AND DIVISION OF DEVELOPMENTAL DISABILITIES SERVICES CONTINUE SEEKING PLACEMENT FOR PT. CM HAS NO OTHER NUMBERS TO CALL TO ASSIST IN SEEKING PLACEMENT FOR PT. CM TO FOLLOW AND ASSIST NEEDED. Mac Camacho, CASE MANAGEMENT
[2017-05-09 16:00] VITALS: BP 120/78
--- NOTE | 2017-05-09 18:18 | NUR ---
ALERT AND ORIENTED X4. AMBULATING IN [place]. DENIES ANY NEEDS. CONTINUE PLAN OF CARE AND SAFETY PRECAUTIONS.
--- NOTE | 2017-05-09 19:42 | NUR ---
RESUMED CARE OF PT, LYING IN BED RESPIRATIONS EVEN AND UNLABORED ON ROOM AIR. CALL LIGHT IN REACH. WILL CONTINUE TO MONITOR. SEE NURSE ASSESSMENT.
--- NOTE | 2017-05-09 22:22 | NUR ---
NIGHT MEDS GIVEN AND 30UNITS OF NPH ADMINISTERED FOR FSBS 209. WILL CONTINUE TO MONITOR.
[2017-05-09 23:00] VITALS: BP 119/53
--- NOTE | 2017-05-10 00:45 | NUR ---
LYING IN BED WITH EYES CLOSED, CALL LIGHT IN REACH. WILL CONTINUE TO MONITOR.
[2017-05-10 01:51] VITALS: BP 133/70
--- NOTE | 2017-05-10 04:22 | NUR ---
LOGISTICS VICE PRESIDENT AT BEDSIDE TO OBTAIN VITALS, CALL LIGHT IN REACH. WILL CONTINUE WITH PLAN OF CARE.
[2017-05-10 05:36] VITALS: BP 121/82
--- NOTE | 2017-05-10 06:37 | NUR ---
NO CHANGES FROM PREVIOUSE ASSESSMENT, CALL LIGHT IN REACH.
--- NOTE | 2017-05-10 07:30 | NUR ---
ASSESSMENT COMPLETED. TELEMERTY SHOWS FLUTTER AT 116. 02 AT 2 L/M PER NC. CARDIZEM DRIP AT 5CC/HR INFUSING INTO THE LEFT HAND. PT IS UP AB JOYCE. DENIES ANY NEEDS AT PRESENT TIME. WILL MONITOR
[2017-05-10 08:00] VITALS: BP 133/52
[2017-05-10 11:55] VITALS: BP 122/49
--- NOTE | 2017-05-10 13:35 | NUR ---
LYING QUIETLY WITH EYES CLOSED.RESP REG AND NONE LABORED. SR UP WITH CALL LIGHT IN REACH
--- NOTE | 2017-05-10 15:52 | NUR ---
LYING QUIETLY WITH EYES CLOSED. RESP EVEN AND NON LABORED. NO DISTRESS NOTED.
[2017-05-10 16:00] VITALS: BP 112/54
[2017-05-10 19:00] VITALS: BP 155/65
--- NOTE | 2017-05-10 20:18 | NUR ---
INITIAL ROUNDS, PT RESTING IN BED WITH EYES CLOSED. RESPS EVEN/NONLABORED. SEE ASSESSMENT, MONITOR AND CPOC.
--- NOTE | 2017-05-10 21:55 | NUR ---
HS MEDS GIVEN. FSBS 110. BEDTIME SANDWICH PROVIDED.
[2017-05-11] VITALS: BP 158/65
--- NOTE | 2017-05-11 02:24 | NUR ---
C/O HEADACHE. MEDICATED WITH TYLENOL. MONITOR AND CPOC.
--- NOTE | 2017-05-11 03:45 | NUR ---
PT NOW RESTING WITH EYES CLOSED.
[2017-05-11 04:00] VITALS: BP 135/69
--- NOTE | 2017-05-11 06:30 | NUR ---
PT AWAKENED SHAKY AND DIAPHORETIC. FSBS 49. PT DRANK 2 GLASSES OF OJ, 1/2 A TURKEY SANDWICH AND PEANUT BUTTER. MONITOR AND RECHECK FSBS AGAIN. PT IS ALREADY FEELING BETTER. NO LONGER SHAKING.
--- NOTE | 2017-05-11 07:19 | NUR ---
AM ROUNDS- PT IN BED, DENIES ANY NEEDS AT THIS TIME. BE LOW AND WHEELS LOCKED, BEDSIDE RAILS X2, CALL LIGHT IN REACH, NAD NOTED, WILL CONTINUE TO MONITOR.
--- NOTE | 2017-05-11 07:44 | NUR ---
RECHECKED PT'S BLOOD SUGAR IT WAS 115. PT IN BED, DENIES ANY NEEDS, CALL LIGHT IN REACH, NAD NOTED, WILL CONTINUE TO MONITOR.
[2017-05-11 08:00] VITALS: BP 121/70
--- NOTE | 2017-05-11 09:01 | NUR ---
AM MEDS GIVEN AT THIS TIME. PT IN BED, DENIES ANY NEEDS AT THIS TIME. CALL LIGHT IN REACH, NAD NOTED, WILL CONTINUE TO MONITOR.
--- NOTE | 2017-05-11 09:59 | NUR ---
PT C/O HEADACHE, PAIN LEVEL OF 9/10. PT UP AD JOYCE IN ROOM, DENIES ANY OTHER NEEDS AT THIS TIME. CALL LIGHT IN REACH, NAD NOTED, WILL CONTINUE TO MONITOR.
[2017-05-11 12:00] VITALS: BP 138/55
[2017-05-11 16:00] VITALS: BP 135/56
--- NOTE | 2017-05-11 19:24 | NUR ---
AMBULATING IN [place], GAIT STEADY.
--- NOTE | 2017-05-11 21:19 | NUR ---
HS MEDS GIVEN, HS SNACK OF 2% MILK AND SANDWHICH TRAY GIVEN. PT DENIES PAIN OR NEEDS, BED LOW, CL IN REACH.
--- NOTE | 2017-05-11 23:46 | NUR ---
DRY WALL INSTALLER AT BEDSIDE TO OBTAIN VITALS, CALL LIGHT IN REACH. WILL CONTINUE WITH PLAN OF CARE.
[2017-05-12] VITALS: BP 124/58
--- NOTE | 2017-05-12 02:55 | NUR ---
RESTING WITH EYES CLOSED, RESPERATIONS EVEN, NO S/S DISTRESS NOTED.
[2017-05-12 04:00] VITALS: BP 131/69
[2017-05-12 08:22] VITALS: BP 180/68
--- NOTE | 2017-05-12 08:49 | NUR ---
AM MEDS GIVEN. PT UP TO SIDE OF BED, EATING BREAKFAST. DENIES ANY NEEDS AT THIS TIME. CALL LIGHT IN REACH, NAD NOTED, WILL CONTINUE TO MONTIOR.
--- NOTE | 2017-05-12 09:38 | NUR ---
AM ROUNDS- PT IN BED, WITH EYES CLOSED. BED LOW AND WHEELS LOCKED, CALL LIGHT IN REACH, BEDSIDE RAILS X2. NAD NOTED, WILL CONTINUE TO MONITOR.
[2017-05-12 12:14] VITALS: BP 114/49
--- NOTE | 2017-05-12 12:25 | NUR ---
Nutrition Follow Up: Pt is eating 100% meal avg on a diabetic diet. +BM 05/11/17. Wt gain since admit noted. Meds and labs reviewed. Rec continue current diet. RD following.
[2017-05-12 15:46] VITALS: BP 128/59
[2017-05-12 19:00] VITALS: BP 133/57
--- NOTE | 2017-05-12 19:43 | NUR ---
ASSESSMENT COMPLETE, A&O. IN BED WATCHING TV, DENIES PAIN OR NEEDS, BED LOW, CL IN REACH.
--- NOTE | 2017-05-12 20:58 | NUR ---
HS MEDS GIVEN, BS 137. SANDWHICH AND 2% MILK GIVEN HS SNACK. PT DENIES PAIN OR NEEDS, BED LOW, CL IN REACH.
[2017-05-13] VITALS: BP 138/60
--- NOTE | 2017-05-13 02:09 | NUR ---
RESTING WITH EYES CLOSED, RESPERATIONS EVEN, NO S/S DISTRESS NOTED.
[2017-05-13 04:00] VITALS: BP 126/74
--- NOTE | 2017-05-13 08:00 | NUR ---
PT IS RESTING IN BED WITH EYES OPEN. ALERT AND FRIENDLY WITH STAFF. HE TOLD ME A STORY ABOUT PLUGGING IN HIS ELECTRIC RAZOR 3 TIMES WHILE I WAS IN THE ROOM. NO ACUTE DISTRESS NOTED. SR'S ARE UP X 2 IN BED. CALL LIGHT AND BEDSIDE TABLE ARE WITHIN EASY REACH.
--- NOTE | 2017-05-13 08:02 | NUR ---
UP SOB EATING BRK. NO NEEDS VOICED AT THIS TIME.
[2017-05-13 08:36] VITALS: BP 132/75
--- NOTE | 2017-05-13 09:46 | NUR ---
Patient Name: ELLIOT FOX Encounter No: [id number] : 1955 Primary Insurance: [employer] CHOICE PPO MCR ADVANT Anticipated DC Date: 04-21-2017 Planned Disposition: [facility] External Planned Provider: TO BE DETERMINED BY ADULT PROTECTIVE SERVICES DCP follow-up note: CM CALLED AND LEFT MESSAGE FOR MARCIA MURDOCK [facility] ADULT PROTECTIVE SERVICES, , REQUESTING UPDATE ON PLACEMENT FOR PATIENT. CM CALLED ANDIE CHUA, , DDS INTAKE AND PLACEMENT SPECIALISTS FOR [facility], LEFT MESSAGE ASKING FOR UPDATE ON PLACEMENT FOR PATIENT. PT NOTIFIED IN HALLWAY. ADULT PROTECTIVE SERVICES AND DIVISION OF DEVELOPMENTAL DISABILITIES SERVICES CONTINUE SEEKING PLACEMENT FOR PT. CM HAS NO OTHER NUMBERS TO CALL TO ASSIST IN SEEKING PLACEMENT FOR PT. CM TO FOLLOW AND ASSIST NEEDED. Mac Camacho, CASE MANAGEMENT
--- NOTE | 2017-05-13 10:03 | NUR ---
PT IS UP AMBULATING IN THE HALLWAYS AND VISITING WITH STAFF. NO ACUTE DISTRESS NOTED.
--- NOTE | 2017-05-13 11:53 | NUR ---
PT IS RESTING IN BED WITH EYES OPEN. NO NEEDS VOICED. WATCHING TV.
[2017-05-13 12:55] VITALS: BP 129/54
--- NOTE | 2017-05-13 15:43 | NUR ---
PT IS RESTING IN BED WATCHING TV. DENIES NEEDS AT THIS TIME. NO DISTRESS NOTED.
[2017-05-13 17:41] VITALS: BP 116/51
--- NOTE | 2017-05-13 19:30 | NUR ---
INITIAL ROUNDS COMPLETED AT 1920 HRS. PT AWAKE, DENIES ANY DISCOMFORT. WILL CONTINUE TO MONITOR.
[2017-05-13 20:00] VITALS: BP 98/42
--- NOTE | 2017-05-13 21:53 | NUR ---
PM MEDS GIVEN. PM SNACK SERVED. PT DENIES ANY DISCOMFORT. WILL CONTINUE TO MONITOR.
[2017-05-14] VITALS: BP 113/54
--- NOTE | 2017-05-14 00:28 | NUR ---
PT RESTING WITH EYES CLOSED. RESP EVEN AND REGULAR. SR UP X2, CALL LIGHT WITHIN REACH.
--- NOTE | 2017-05-14 02:17 | NUR ---
PT AMBULATING HALLS. GAIT EVEN AND REGULAR. SR UP X2, CALL LIGHT WITHIN REACH.
--- NOTE | 2017-05-14 02:52 | NUR ---
PT STATES HE FEELS DIZZY AFTER BENDING DOWN AND STANDING UP QUICKLY. VSS. FSBS 215. PT CURRENTLY LYING IN BED. WILL CONTINUE TO MONITOR.
[2017-05-14 04:00] VITALS: BP 159/69
--- NOTE | 2017-05-14 04:48 | NUR ---
PT RESTING WITH EYES CLOSED. RESP EVEN AND REGULAR. SR UP X2, CALL LIGHT WITHIN REACH.
--- NOTE | 2017-05-14 06:37 | NUR ---
VSS THROUGHOTU NIGHT. PT STATED TYLENOL HELPED ROTH. NEEDS MET; WILL CONTINUE TO MONITOR.
--- NOTE | 2017-05-14 07:37 | NUR ---
ASSESSMENT COMPLETED. EYES CLOSED RESTING QUIETLY. NO DISTRESS NOTED. CALL LIGHT IN REACH WITH SR UP. WILL MONITOR
[2017-05-14 08:00] VITALS: BP 115/55
[2017-05-14 12:00] VITALS: BP 108/43
[2017-05-14 16:00] VITALS: BP 125/56
--- NOTE | 2017-05-14 17:30 | NUR ---
UP IN ROOM. DENIES ANY NEEDS. SR UP WITH CALL LIGHT IN REACH. WILL MONITOR
--- NOTE | 2017-05-14 18:20 | NUR ---
UP IN HALLWAY. DENIED ANY NEEDS. WILL MONITOR
--- NOTE | 2017-05-15 00:57 | NUR ---
IN BED RESTING WITH EYES CLOSED, RESPERATIONS EVEN, NO S/S DISTRESS NOTED.
[2017-05-15 04:00] VITALS: BP 101/69
--- NOTE | 2017-05-15 04:06 | NUR ---
TYLENOL GIVEN FOR C/O HEADACHE, RATES PAIN AT A 9 ON PAIN SCALE.
--- NOTE | 2017-05-15 07:32 | NUR ---
ASSESSMENT COMPLETED.NO TELEMERTY OR IV. UP AB JOYCE. DENIES ANY NEEDS. SR UP WITH CALL LIGHT IN REACH. WILL MONITOR
[2017-05-15 08:38] VITALS: BP 120/69
--- NOTE | 2017-05-15 12:35 | NUR ---
UP IN ROOM FOR DIET. DENIES ANY NEEDS. CALL LIGHT IN REACH
--- NOTE | 2017-05-15 19:45 | NUR ---
PT RESTING IN ROOM WITH EYES CLOSED. RESPS EVEN/NONLABORED. NO DISTRESS. SEE ASSESSMENT AND CPOC.
[2017-05-15 20:00] VITALS: BP 124/59
--- NOTE | 2017-05-15 23:11 | NUR ---
PT UP AND HAS WALKED AROUND UNIT. HS MEDS GIVEN. WATCHING TV. CPOC.
--- NOTE | 2017-05-16 07:38 | NUR ---
ASSESSMENT DONE. DENIES NEEDS.
[2017-05-16 08:00] VITALS: BP 120/55
--- NOTE | 2017-05-16 09:31 | NUR ---
RESTS IN BED WITH CALL LIGHT IN REACH. NORMAN NEEDS AT THIS TIME. WILL MONITOR.
--- NOTE | 2017-05-16 17:13 | NUR ---
WITHOUT CHANGES OR DISTRESS NOTED AT THIS TIME. DENIES NEEDS.
--- NOTE | 2017-05-16 19:15 | NUR ---
ASSESSMENT COMPLETE PER FLOWSHEET. VOICES NO CO AT TIME. SR UP X 2.
[2017-05-16 20:00] VITALS: BP 111/49
--- NOTE | 2017-05-16 21:30 | NUR ---
AWAKEN FOR MEDS. VOICES NO CO AT TIME.
--- NOTE | 2017-05-16 23:51 | NUR ---
SLEEPING NO DISTRESS NOTED. SR UP X 2. CALL LIGHT WITHIN REACH.
[2017-05-17] VITALS: BP 125/59
--- NOTE | 2017-05-17 00:26 | NUR ---
SLEEPING NO DISTRESS NOTED. SR UP X 2. CALL LIGHT WITHIN REACH.
--- NOTE | 2017-05-17 02:45 | NUR ---
UP AT DESK TO GET SANDWICH. VOICES NO CO AT TIME.
[2017-05-17 04:00] VITALS: BP 135/58
--- NOTE | 2017-05-17 04:35 | NUR ---
MEDS GIVEN AWAKE VOICES NO CO AT TIME.
[2017-05-17 06:35] LABS: ANION GAP 10.5 mmol/L (8-16); CALCIUM 8.1 mg/dL (8.5-10.1); CARBON DIOXIDE 30.4 mmol/L (21.0-32.0); CREATININE - SERUM 1.1 mg/dL (0.6-1.3); POTASSIUM - SERUM 4.9 mmol/L (3.5-5.1)
[2017-05-17 07:23] LABS: BASOPHILS 0.2 % (0-2); HEMATOCRIT 37.5 % (42.0-54.0); HEMOGLOBIN 12.7 g/dL (13.5-17.5); IMMATURE GRANULOCYTES 0.2 % (0-5); LYMPHOCYTES 44.4 % (15-50); MCH 31.8 pg (26.0-34.0); MCHC 33.9 g/dL (31.0-37.0); MONOCYTES 12.6 % (2-11); NEUTROPHILS 41.6 % (40-80); PLATELET COUNT 188 10x3/uL (130-400); RBC 3.99 10x6/uL (4.20-6.10); RDW 13.4 % (11.5-14.5); WBC 5.9 10x3/uL (4.8-10.8)
--- NOTE | 2017-05-17 07:40 | NUR ---
ASSESSMENT DONE. DENIES NEEDS.
--- NOTE | 2017-05-17 08:47 | NUR ---
RESTS IN BED WITHOUT NEEDS INDICATED. CALL LIGHT IN REACH. WILL CONT. PLAN OF CARE.
--- NOTE | 2017-05-17 09:32 | NUR ---
Patient Name: ELLIOT FOX Encounter No: [id number] : 1955 Primary Insurance: [employer] CHOICE PPO MCR ADVANT Anticipated DC Date: 04-21-2017 [facility] External Planned Provider: TO BE DETERMINED BY [facility]ULT PROT[facility] DCP follow-up note: CM CALLED AND LEFT MESSAGE FOR MARCIA MURDOCK OF [facility] ADULT PROTECTIVE [facility], , REQUESTING UPDATE ON PLACEMENT FOR PATIENT; CM FAXED UPDATE TO MARCIA OF [facility] AT [phone]. DWAYNE CALLED ANDIE CHUA, , [facility] FOR [facility], WHO REPORTS THAT PT HAS NO MEDICAID, STILL TRYING TO GET MEDICAL RECORDS PRIOR TO AGE 22. ANDIE REPORTS THAT MARCIA PAL [facility] IS HELPING TO FIND RECORDS FOR PT. ANDIE ASSURED CM THAT ALL THAT CAN BE DONE IS BEING DONE AND THAT THERE IS NOTHING CM NEEDS TO DO. DWAYNE FAXED HOSPITAL UPDATE TO ANDIE OF [facility] AT [phone]. CM CALLED JESSIKA SHERMAN, ADULT PROTECTIVE SERVICES BLENDING TANK HELPER, , ASKED FOR COPY OF LAST COURT ORDER BE FAXED TO HOSPITAL FOR RECORD. ADULT PROTECTIVE SERVICES AND DIVISION OF DEVELOPMENTAL DISABILITIES SERVICES CONTINUE SEEKING PLACEMENT FOR PT. CM HAS NO OTHER NUMBERS TO CALL TO ASSIST IN SEEKING PLACEMENT FOR PT. CM TO FOLLOW AND ASSIST NEEDED. Mac Camacho, CASE MANAGEMENT
[2017-05-17 13:08] VITALS: BP 129/56
[2017-05-17 13:09] VITALS: BP 150/66
[2017-05-17 16:30] VITALS: BP 98/50
--- NOTE | 2017-05-17 16:44 | NUR ---
WITHOUT CHANGES OR DISTRESS NOTED AT THIS TIME. DENIES NEEDS.
[2017-05-17 20:00] VITALS: BP 140/67
--- NOTE | 2017-05-18 00:12 | NUR ---
NURSE ROUNDS 05/17/17 @ 21;15 - PT LYING IN BED, AWAKE, ALERT, ORIENTED, ASKING FOR HIS SANDWICH TO GO WITH HIS MEDICATIONS. PT DENIES ANY NEEDS. HE DID AMBULATE TO BATHROOM AND BACK TO BED WITH OUT ANY DIFFICULTY. CONTINUE TO MONITOR CLOSELY.
--- NOTE | 2017-05-18 06:50 | NUR ---
PT EASILY ROUSABLE TO VERBAL STIMULI THIS MORNING, DENIES ANY NEEDS. CONTINUE TO MONITOR CLOSELY.
[2017-05-18 10:02] VITALS: BP 138/57
--- NOTE | 2017-05-18 13:30 | NUR ---
UP WALKING IN HALLWAYS NO DISTRESS WILL CONTINUE TO MONITOR
--- NOTE | 2017-05-18 14:41 | NUR ---
Nutrition follow-up: Diet: ADA consistent CHO PO intake 100% of meals Labs reviewed RDN following.
[2017-05-18 14:42] VITALS: BP 149/66
[2017-05-18 17:48] VITALS: BP 119/50
--- NOTE | 2017-05-18 18:46 | NUR ---
PT STATES "HE IS HAVING A SEIZURE" AND STATES "I CANT MOVE MY LEFT SIDE" UPON INSPECTION NO FACIAL DROOPING SLURRED SPEECH OR WEAKNESS NOTED. OBSERVED PT MOVING HIS LEFT ARM WHILE I WAS WALKING PAST HIS ROOM. WILL CONTINUE TO MONITOR.
[2017-05-18 19:00] VITALS: BP 136/65
--- NOTE | 2017-05-19 | NUR ---
PT RESTING IN BED RIGHT SIDE LYING NO ACUTE DISTRESS
--- NOTE | 2017-05-19 01:35 | NUR ---
CALL LIGHT IN REACH, WILL CONTINUE WITH PLAN OF CARE.
[2017-05-19 06:24] VITALS: BP 131/76
--- NOTE | 2017-05-19 06:45 | NUR ---
PT HAS RESTED QUIETLY THIS SHIFT NO DISTRESS NOTED VOICES ALL NEEDS CALL LIGHT IN REACH SIDE RAILS UP X 2
[2017-05-19 08:00] VITALS: BP 127/68
--- NOTE | 2017-05-19 08:00 | NUR ---
AM ROUNDING DONE WITH PROGRAM TECHNICIAN NURSE COVERING FOR AM BLOOD SUGAR OF 242 WITH 5 U INSULIN ORDERED. PATIENT HAS VOICED NO NEEDS. PROGRAM TECHNICIAN REPORTS THAT THE PATIENT SLEPT ALL NIGHT WITH NO CONCERNS. WILL CPOC.
[2017-05-19 12:00] VITALS: BP 178/66
[2017-05-19 16:00] VITALS: BP 108/49
--- NOTE | 2017-05-19 16:27 | NUR ---
5 UNITS OF HUMULIN INSULING GIVEN TO RIGHT ARM FOR POC GLUCOSE 337.
[2017-05-19 19:00] VITALS: BP 116/54
[2017-05-20 04:00] VITALS: BP 133/59
[2017-05-20 08:07] VITALS: BP 120/60
--- NOTE | 2017-05-20 10:08 | NUR ---
PATIENT ASLEEP. AWAKEN FOR AM MEDS. PT STATED HE HIT IS R ARM ON THE BEDSIDE TABLE. SMALL SKIN TEAR NOTED ON ARM. PT ALSO STATED HE HAD A SACK FULL OF BANDANAS BUT THEY ARE MISSING NOW. WILL CALL SECURITY.
--- NOTE | 2017-05-20 19:25 | NUR ---
ANSWERED CL, PT A&O. WANTING TO GIVE STAFF CANDY, PT DENIES PAIN OR OTHER NEEDS. BED LOW, CL IN REACH.
[2017-05-20 20:00] VITALS: BP 144/58
--- NOTE | 2017-05-20 21:23 | NUR ---
HS MEDS GIVEN, HS SNACK PROVIDED. PT DENIES PAIN OR NEEDS.
--- NOTE | 2017-05-21 07:30 | NUR ---
ASSESSMENT DONE. DENIES NEEDS AT THIS TIME.
[2017-05-21 08:22] VITALS: BP 139/66
--- NOTE | 2017-05-21 09:53 | NUR ---
UP AMBULATING HALLWAY. GAIT STEADY. NO NEEDS VOICED. WILL CONT. PLAN OF CARE.
[2017-05-21 16:40] VITALS: BP 128/52
--- NOTE | 2017-05-21 17:10 | NUR ---
WITHOUT CHANGES OR DISTRESS NOTED AT THIS TIME. DENIES NEEDS.
[2017-05-21 19:00] VITALS: BP 120/56
--- NOTE | 2017-05-21 19:32 | NUR ---
INITIAL ROUNDS COMPLETED/ PT RESTING WITH EYES CLOSED. RESP EVEN AND REGULAR. SR UP X2, CALL LIGHT WITHIN REACH.
--- NOTE | 2017-05-21 22:58 | NUR ---
PT RESTING WITH EYES CLOSED. RESP EVEN AND REGULAR. SR UP X2, CALL LIGHT WITHIN REACH.
--- NOTE | 2017-05-22 00:47 | NUR ---
PT RESTING WITH EYES CLOSED. RESP EVEN AND REGULAR. SR UP X2, CALL LIGHT WITHIN REACH.
[2017-05-22 02:18] VITALS: BP 147/66
--- NOTE | 2017-05-22 02:38 | NUR ---
PT RESTING WITH EYES CLOSED. RESP EVEN AND REGULAR. SR UP X2, CALL LIGHT WITHIN REACH.
--- NOTE | 2017-05-22 06:45 | NUR ---
PT RESTED WELL DURING SHIFT. AM FSBS 235. 5 UNITS REG INSULIN GIVEN SUB-Q TO UPPER R ARM. NEEDS MET; WILL CONTINUE TO MONITOR.
[2017-05-22 08:16] VITALS: BP 101/62
[2017-05-22 19:00] VITALS: BP 131/61
--- NOTE | 2017-05-22 20:22 | NUR ---
INITIAL ROUNDS COMPLETED AT 1910 HRS. PT RESTING WITH EYES CLOSED. RESP EVEN AND REGUALR. ASSESSMETN COMPETED AT 1920 HRS. VSS. LUNGS DIMINISHED IN BASES BILAT. DENIES ANY DISCOMFORT. WILL CONTINUE TO MONITOR. SR UP X2, CALL LIGHT WITHIN REACH.
--- NOTE | 2017-05-22 21:57 | NUR ---
PT RESTING WITH EYES CLOSED. RESP EVEN AND REGULAR. SR UP X2, CALL LIGHT WITHIN REAXCH.
[2017-05-23] VITALS (19 sets, daily range): BP systolic 91–141; BP diastolic 50–81
--- NOTE | 2017-05-23 00:19 | NUR ---
PT RESTING WITH EYES CLOSED. RESP EVEN ADN REGULAR. SR UP X2, CALL LIGHT WITHIN REACH.
--- NOTE | 2017-05-23 04:28 | NUR ---
PT RESTING WITH EYES CLOSED. RESP EVEN AND REGULAR. SR UP X2, CALL LIGHT WITHI REACH.
--- NOTE | 2017-05-23 06:19 | NUR ---
AM FSBS 222. 10 UNITS REG INSULIN GIVEN SUB-Q TO UPPER R ARM PER ORDERS. ORANGE JUICE GIVEN. PT DENIED ANY DISCOMFORT DURING SHIFT. NEEDS MET; WILL CONTINUE TOMONITOR.
--- NOTE | 2017-05-23 07:54 | NUR ---
ASSESSMENT COMPLETED. DENIES ANY NEEDS. NO TELEMERTY, IV OR O2. AWAITING PLACEMENT. UP AB JOYCE. WILL MONITOR
--- NOTE | 2017-05-23 07:56 | NUR ---
ASSESSMENT COMPLETED.TELEMERTY SHOWS SR 64. IV TO LEFT THUMB. NPO FOR POSSIBLE FISTUGRAM. FAMILY AT BEDSIDE. SURGERY HAS NOT BEEN SCHEDULED AT THIS TIME. AWAITING ORDERS. WILL MONITOR .
--- NOTE | 2017-05-23 10:43 | NUR ---
RESTING QUIETLY RESP UNLABORED DENIES ANY NEEDS AT THIS TIME NAD NOTED
--- NOTE | 2017-05-23 12:57 | NUR ---
C/O HEART BUN AFTER EATING. GIVEN TUMS PER ORDERS. O OTHER NEEDS VOICED
--- NOTE | 2017-05-23 14:15 | NUR ---
PT C/O HEADACHE. TULENOL 500MG GIVEN FOR RELIEF. WILL MONITOR
--- NOTE | 2017-05-23 17:05 | NUR ---
Patient Name: ELLIOT FOX Encounter No: [id number] : 1955 Primary Insurance: [employer] CHOICE PPO MCR ADVANT Anticipated DC Date: 04-21-2017 Planned Disposition: [facility] External Planned Provider: TO BE DETERMINED BY [facility] DCP follow-up note: DWAYNE SPOKE TO MARCIA MURDOCK OF [facility], WHO REPORTS VISITING WITH PT IN ROOM. MARCIA REPORTS [facility] AND [facility] CONTINUES TO BE SEEKING PLACEMENT FOR PT. MARCIA REPORTS HE WILL GET CM A COPY OF THE LAST COURT ORDER SOON POSSIBLE. ADULT PROTECTIVE SERVICES AND DIVISION OF DEVELOPMENTAL DISABILITIES SERVICES CONTINUE SEEKING PLACEMENT FOR PT. CM HAS NO OTHER NUMBERS TO CALL TO ASSIST IN SEEKING PLACEMENT FOR PT. CM TO FOLLOW AND ASSIST NEEDED. Mac Camacho, CASE MANAGEMENT
--- NOTE | 2017-05-23 17:48 | NUR ---
PT FOUND ON COMMODE UN RESPONSIVE. FS B/S 297. B/P 73/44, PULSE 44. TRANSFERRED TO ICU
[2017-05-23 18:21] LABS: BASOPHILS 0.3 % (0-2); EOSINOPHILS 1.3 % (0-7); HEMATOCRIT 37.2 % (42.0-54.0); HEMOGLOBIN 12.5 g/dL (13.5-17.5); IMMATURE GRANULOCYTES 0.2 % (0-5); LYMPHOCYTES 49.3 % (15-50); MCH 31.7 pg (26.0-34.0); MCHC 33.6 g/dL (31.0-37.0); MCV 94.4 fL (80.0-100.0); MEAN PLATELET VOLUME 10.4 fL (7.4-10.4); MONOCYTES 11.3 % (2-11); NEUTROPHILS 37.6 % (40-80); PLATELET COUNT 196 10x3/uL (130-400); RBC 3.94 10x6/uL (4.20-6.10); RDW 13.3 % (11.5-14.5)
[2017-05-23 18:52] LABS: ALBUMIN 2.6 g/dL (3.4-5.0); ALKALINE PHOSPHATASE 66 U/L (46-116); ALT (SGPT) 15 U/L (10-68); CALC OSMOLALITY 287 mosm/kg (275-300); CALCIUM 8.3 mg/dL (8.5-10.1); CARBON DIOXIDE 26.5 mmol/L (21.0-32.0); CHLORIDE - SERUM 101 mmol/L (98-107); GLUCOSE 273 mg/dL (74-106); POTASSIUM - SERUM 4.5 mmol/L (3.5-5.1); PROTEIN - SERUM 5.3 g/dL (6.4-8.2); SODIUM 137 mmol/L (136-145); UREA NITROGEN 25 mg/dL (7-18); eGFR NON AFRICAN AMERICAN 81 mL/min (90-120)
[2017-05-23 19:02] LABS: CKMB 0.6 U/L (0.0-3.6); CREATINE KINASE 49 UL (21-232); TROPONIN-I < 0.017 ng/mL (0.000-0.060)
--- NOTE | 2017-05-23 19:30 | NUR ---
Assessment complete. See flowsheet. Pt awake upon entrance into room and c/o chest pain rated 8/10 but no grimacing and non-diaphoretic. HR 50bpm and BP stable. Pt denies radiation of chest pain to arm or jaw. Pain worsens with point-tenderness palpation to left 5th intercostal space. STAT CXR ordered to evaluate poss lung infiltrates or skeletal abnormalities. Pt receiving O2 @ 2L NC. NO s/s SOB with SPO2 99%. O2 removed and pt placed on room air with SPO2 97%. Lung sounds clear to all richter. Pt asked to deep breathe and cough with no rattle noted and no production of sputum. HR remains SB. S1S2 auscultated. All peripheral pulses +2 with capillary refill <3 seconds. Right wrist 20g PIV site dressing non-secure with PIV site advanced and dressing replaced. Pt very uncooperative with assessment and continues to talk despite auscultation. Pt asks for his glasses and cane continuously despite deferral of questioning. Abdomen soft, non-tender with BS present to all quadrants. Urinal within pt reach. EKG leads repositioned and pt self-positioning up in bed and gown fastened and resecured. Pt asking for crown royal and coke and provided with ice water. Pt continues to be attention seeking and talking to everyone outside of his room. Call light and bedside table provided and placed within reach. Pt immediately hits call light x3 after leaving room to remind he that his cane is in his medical room. Cane obtained and provided within pt room. Telephone provided to pt per request.
--- NOTE | 2017-05-23 21:30 | NUR ---
Pt PM medications administered with fresh ice water. Pt remains attention seeking and slightly uncooperative.
--- NOTE | 2017-05-23 23:30 | NUR ---
Reassessment complete. See flowsheet. Pt resting with VSS and awakens to verbal stimulation with no neuro changes to note. Pain denied. Respirations even and unlabored. O2 RA. Lung sounds remain CTA. HR SR with S1S2 auscultated. PIV site CDI with NS infusing @ 50cc/hr. BS +. NO other changes to note. Call light and bedside table remain within pt reach. CPOC.
[2017-05-24] VITALS (11 sets, daily range): BP systolic 103–140; BP diastolic 47–74
--- NOTE | 2017-05-24 01:30 | NUR ---
Pt resting quietly with VSS. NO s/s pain or distress. Pt allowed to continue resting undisturbed. Call light and bedside table remain within reach. CPOC.
--- NOTE | 2017-05-24 03:30 | NUR ---
Reassessment complete. See flowsheet. Pt awake and helped with sips of fresh ice water. Pt much more cooperative at this time. Oriented x4 and following conversation. O2 RA. Lung sounds CTA. HR SB 59bpm with S1S2 auscultated. All peripheral pulses remain +2 with capillary refill <3 seconds. PIV site CDI and saline locked. BS +. Call light and bedside table remain within reach. NO other changes to note. CPOC.
[2017-05-24 03:38] LABS: CKMB 0.2 U/L (0.0-3.6); CREATINE KINASE 32 UL (21-232)
[2017-05-24 03:44] LABS: TROPONIN-I < 0.017 ng/mL (0.000-0.060)
--- NOTE | 2017-05-24 05:30 | NUR ---
Resting with VSS.
[2017-05-24 06:53] LABS: ALBUMIN 2.7 g/dL (3.4-5.0); ALKALINE PHOSPHATASE 72 U/L (46-116); ALT (SGPT) 17 U/L (10-68); BASOPHILS 0.3 % (0-2); BILIRUBIN - TOTAL 0.18 mg/dL (0.2-1.3); CALC OSMOLALITY 291 mosm/kg (275-300); CALCIUM 8.4 mg/dL (8.5-10.1); CARBON DIOXIDE 31.6 mmol/L (21.0-32.0); CHLORIDE - SERUM 103 mmol/L (98-107); CREATININE - SERUM 0.9 mg/dL (0.6-1.3); EOSINOPHILS 0.5 % (0-7); GLUCOSE 236 mg/dL (74-106); HEMATOCRIT 39.1 % (42.0-54.0); HEMOGLOBIN 13.1 g/dL (13.5-17.5); IMMATURE GRANULOCYTES 0.2 % (0-5); LYMPHOCYTES 37.7 % (15-50); MCH 31.9 pg (26.0-34.0); MCHC 33.5 g/dL (31.0-37.0); MCV 95.1 fL (80.0-100.0); MEAN PLATELET VOLUME 10.8 fL (7.4-10.4); MONOCYTES 8.8 % (2-11); NEUTROPHILS 52.5 % (40-80); PLATELET COUNT 209 10x3/uL (130-400); POTASSIUM - SERUM 4.8 mmol/L (3.5-5.1); PROTEIN - SERUM 5.9 g/dL (6.4-8.2); RBC 4.11 10x6/uL (4.20-6.10); RDW 13.6 % (11.5-14.5); SODIUM 141 mmol/L (136-145); UREA NITROGEN 22 mg/dL (7-18); WBC 6.1 10x3/uL (4.8-10.8); eGFR NON AFRICAN AMERICAN > 90 mL/min (90-120)
--- NOTE | 2017-05-24 08:48 | NUR ---
Patient Name: ELLIOT FOX Encounter No: [id number] : 1955 Primary Insurance: [employer] CHOICE PPO MCR ADVANT Anticipated DC Date: 04-21-2017 Planned Disposition: [facility] External Planned Provider: TO BE DETERMINED BY [facility]ULT [facility]OT[facility] SERVICES DCP follow-up note: CM REVIEWED CHART, CALLED MARCIA MURDOCK OF ADULT PROT[facility]IVE SERVICES, CELL [phone], LEFT MESSAGE INFORMING OF PT'S TRANSFER TO ICU AND PROVIDED BRAINER CM PHONE CONTACT NUMBER FOR ANY NEEDED UPDATES. ADULT PROTECTIVE SERVICES AND DIVISION OF DEVELOPMENTAL DISABILITIES SERVICES CONTINUE SEEKING PLACEMENT FOR PT. CM HAS NO OTHER NUMBERS TO CALL TO ASSIST IN SEEKING PLACEMENT FOR PT. CM TO FOLLOW AND ASSIST NEEDED. Mac Camacho, CASE MANAGEMENT
[2017-05-24 09:11] LABS: CKMB 0.2 U/L (0.0-3.6); CREATINE KINASE 37 UL (21-232)
[2017-05-24 09:12] LABS: TROPONIN-I < 0.017 ng/mL (0.000-0.060)
--- NOTE | 2017-05-24 09:25 | NUR ---
NUTRITION MONITORING & EVAL PT NOW IN ICU. REPORTS GOOD PO INTAKE BREAKFAST. WILL CONTINUE TO MONITOR PT PROGRESS, PO INTAKE. RD FOLLOWING
--- NOTE | 2017-05-24 11:00 | NUR ---
SITTING UP ON SIDE OF BED EATING LUNCH.
--- NOTE | 2017-05-24 13:00 | NUR ---
SLEEPING NO DISTRESS NOTED. SR UP X 2
--- NOTE | 2017-05-24 14:33 | NUR ---
Rec'd call from Nader Nevarez with [facility] - he requested update on status, which was given. He states he does not have a disposition for patient yet. He states he is working on several options but has been unsuccessful. He states he will continue to work on placement. CM will follow & assist as needed.
--- NOTE | 2017-05-24 17:37 | NUR ---
SITTING UP ON SIDE OF THE BED EATING SUPPER. VOICES NO CO AT TIME.
--- NOTE | 2017-05-24 19:40 | NUR ---
Assessment complete. See flowsheet. Pt resting with eyes covered and awakens easily to verbal stimulation. No neuro deficits noted. O2 RA. Respirations unlabored. Pt denies pain and self-positions for comfort. Needs denied. Call light and bedside table within pt reach. CPOC.
--- NOTE | 2017-05-24 21:00 | NUR ---
PM meds administered with water. See MAR. VSS. Pt denies further needs at this time.
--- NOTE | 2017-05-24 21:40 | NUR ---
Pt resting with VSS.
--- NOTE | 2017-05-25 00:21 | NUR ---
Large soft brown BM to bedpan x2 Pericare completed. Pt self-positioned for comfort.
--- NOTE | 2017-05-25 00:34 | NUR ---
Pt to wheelchair for transfer to [facility] room 2229 with belongings
[2017-05-25 00:35] VITALS: BP 107/63
--- NOTE | 2017-05-25 01:06 | NUR ---
PATIENT RECEIVED FROM ICU, REPORT GIVEN VIA PHONE. STABLE, NO COMPLAINTS, SLIGHTLY MANIC. NO NEEDS NOTED AT THIS TIME. INFORMED STAFF NEEDS A STOOL SAMPLE
[2017-05-25 03:47] VITALS: BP 135/57
--- NOTE | 2017-05-25 07:30 | NUR ---
REPORT RECEIVED FROM BINDU MURDOCK. CALL LIGHT IN REACH.
[2017-05-25 08:42] VITALS: BP 134/68
--- NOTE | 2017-05-25 08:50 | NUR ---
ENTERED PTS ROOM AT THIS TIME TO ANSWER CALL LIGHT, PT STATED HE HAD PAIN AT HIS IV SITE. NO REDNESS OR SWELLING NOTED, NO IV FLUIDS BEING ADMINISTERED. INFORMED DARRYL MALIK OF THIS. PT HAS NO COMPLAINTS OTHERWISE. BED IN LOW POSITION AND CALL LIGHT WITHIN REACH. WILL CONTINUE TO MONITOR.
--- NOTE | 2017-05-25 09:53 | NUR ---
ASSESSMENT COMPLETED. REFUSES SCs. CALL LIGHT IN REACH. WILL CONTINUE WITH PLAN OF CARE.
[2017-05-25 11:59] VITALS: BP 131/57
[2017-05-25 12:33] LABS: BASOPHILS 0.3 % (0-2); HEMOGLOBIN 12.6 g/dL (13.5-17.5); LYMPHOCYTES 40.5 % (15-50); MCH 31.4 pg (26.0-34.0); MCHC 33.2 g/dL (31.0-37.0); MCV 94.8 fL (80.0-100.0); MEAN PLATELET VOLUME 10.6 fL (7.4-10.4); MONOCYTES 11.4 % (2-11); NEUTROPHILS 46.8 % (40-80); PLATELET COUNT 189 10x3/uL (130-400); RBC 4.01 10x6/uL (4.20-6.10); RDW 13.7 % (11.5-14.5); WBC 6.9 10x3/uL (4.8-10.8)
[2017-05-25 12:47] LABS: ALBUMIN 2.6 g/dL (3.4-5.0); ALKALINE PHOSPHATASE 70 U/L (46-116); ALT (SGPT) 16 U/L (10-68); BILIRUBIN - TOTAL 0.24 mg/dL (0.2-1.3); CALC OSMOLALITY 291 mosm/kg (275-300); CALCIUM 8.2 mg/dL (8.5-10.1); CARBON DIOXIDE 32.3 mmol/L (21.0-32.0); CHLORIDE - SERUM 103 mmol/L (98-107); CREATININE - SERUM 0.9 mg/dL (0.6-1.3); GLUCOSE 227 mg/dL (74-106); POTASSIUM - SERUM 4.1 mmol/L (3.5-5.1); PROTEIN - SERUM 5.7 g/dL (6.4-8.2); SODIUM 141 mmol/L (136-145); UREA NITROGEN 24 mg/dL (7-18); eGFR NON AFRICAN AMERICAN > 90 mL/min (90-120)
--- NOTE | 2017-05-25 13:19 | NUR ---
AM MEDS ADMINISTERED. STATES HE HAD A SEIZURE EARLIER BUT DID NOT TELL ANYONE. EXPLAINED TO PATIENT THAT THE HAS TO TELL US WHEN HE FEELS LIKE HE IS HAVING ONE. VERBALIZED UNDERSTANDING. REQUESTING IV OUT BECAUSE HESTATS HE HIT IT AND IT HURTS. TIP WAS INTACT.
[2017-05-25 15:09] VITALS: BP 112/50
--- NOTE | 2017-05-25 15:45 | NUR ---
C/O CHEST PAIN. SPOKE WITH DR. HURLEY. NEW ORDERS RECEIVED.
[2017-05-25 16:45] LABS: CKMB 0.5 U/L (0.0-3.6); CREATINE KINASE 36 UL (21-232)
[2017-05-25 16:50] LABS: TROPONIN-I < 0.017 ng/mL (0.000-0.060)
[2017-05-25 20:00] VITALS: BP 140/54
--- NOTE | 2017-05-25 20:00 | NUR ---
ASSESSMENT PER FLOWSHEET. RESTING IN BED DENIES NEEDS. SR UP X2 CALL LIGHT WITHIN REACH.DENIES PAIN OR DISCOMFORT.
--- NOTE | 2017-05-25 21:30 | NUR ---
MEDS GIVEN PER MAR.
[2017-05-26] VITALS: BP 120/53
--- NOTE | 2017-05-26 | NUR ---
AWAKE WALKING AROUND IN ROOM USES BR FREELY.
--- NOTE | 2017-05-26 01:02 | NUR ---
C/O HEADACHE RATES PAIN LEVEL #6 TYLENOL 500MG PO GIVEN FOR RELIEF OF HEADACHE.
[2017-05-26 04:00] VITALS: BP 138/54
--- NOTE | 2017-05-26 07:45 | NUR ---
PT ASSESSMENT COMPLETE AWAKE AND ALERT ORINETD X 3 LUNGS CLAER BILAT NO ACUTE DISTRESS NOTED VOICES ALL NEEDS TO STAFF CALL LIGHT IN REACH SIDE RAILS UP X 2 UP AD JOYCE WITH MINIMAL ASSIST
[2017-05-26 08:09] VITALS: BP 167/72
[2017-05-26 11:44] VITALS: BP 125/70
--- NOTE | 2017-05-26 14:00 | NUR ---
PT LAYING IN BED WITH NO VISABLE SIGNS OF PAIN OR DISCOMFORT NOTED. BED IN LOW POSITION AND CALL LIGHT WITHIN REACH. WILL CONTINUE TO MONITOR.
--- NOTE | 2017-05-26 14:28 | NUR ---
PT RESTING WELL IN BED LEFT SIDE LYING NO ACUTE DISTRESS NOTED VOICES NEEDS TO STAFF CALL LIGHT IN REACH SIDE RAILS UP X 2
--- NOTE | 2017-05-26 14:39 | NUR ---
DWAYNE SPOKE WITH MARCIA MURDOCK AND HE REQUESTED INFORMATION BE FAXED TO [facility]. DWAYNE FAXED INFORMATION TO [facility] AND THEY WILL LET MARCIA KNOW IF PATIENT IS ACCEPTED TO THEIR FACILITY. [facility] [place] [phone] ATTN: [facility]
[2017-05-26 15:25] VITALS: BP 128/55
--- NOTE | 2017-05-26 16:25 | NUR ---
CM REASSESSMENT NOTE: PATIENT WILL DISCHARGE TOMORROW AM PER MARCIA WITH [facility]. JUDY IVEY WILL PICK PATIENT UP AT 9:00 TO GO TO [facility].
--- NOTE | 2017-05-26 17:21 | NUR ---
SCDS IN ROOM ON PT TOLERATING WELL. NO DISTRESS NOTED
--- NOTE | 2017-05-26 19:00 | NUR ---
BEDSIDE REPORT RECEIVED AND CARE OF PT ASSUMED. PT LYING ON RIGHT SIDE WITH EYES CLOSED AND UNLABORED BREATHING. WILL MONITOR [facility] FOR NEEDS. CALL LIGHT WITHIN REACH.
[2017-05-26 20:00] VITALS: BP 128/80
--- NOTE | 2017-05-26 22:40 | NUR ---
HS MEDICATIONS GIVEN. HS SNACK GIVEN PER DIET ORDER.
--- NOTE | 2017-05-26 23:20 | NUR ---
GAVE TYLENOL PER REQUEST FOR HEADACHE. WILL MONITOR FOR EFFECTIVENESS.
--- NOTE | 2017-05-26 23:44 | NUR ---
GAVE TUMS 1000 MG PO PER PT REQUEST FOR HEARTBURN. WILL MONITOR FOR EFFECTIVENESS. CALL LIGHT WITHIN REACH.
[2017-05-27] VITALS: BP 136/63
[2017-05-27 04:00] VITALS: BP 138/63
--- NOTE | 2017-05-27 06:34 | NUR ---
FSBS 237 THIS AM. ALL NEEDS MET DURING SHIFT. CONTINUE PLAN OF CARE.
--- NOTE | 2017-05-27 07:40 | NUR ---
ASSESSMENT PER FLOW SHEET.PT WITHOUT DISTRESS.CALL LIGHT IN REACH.
[2017-05-27 08:32] VITALS: BP 152/71
[2017-05-27] MEDS ORDERED: ZESTRIL40 MG PO ×2 (08:45→09:11)
[2017-05-27] MEDS ORDERED: FUROSEMIDE20 MG PO ×2 (08:47→09:11)
[2017-05-27] MEDS ORDERED: ACETAMINOPHEN500 M1 PO ×2 (08:47→09:11)
[2017-05-27] MEDS ORDERED: PROTONIX40 MG PO ×2 (08:47→09:11)
[2017-05-27] MEDS ORDERED: HUMULIN R100 U/ML SC ×3 (08:47→09:11)
[2017-05-27] MEDS ORDERED: TUMS500 MG PO ×2 (08:47→09:11)
--- NOTE | 2017-05-27 09:03 | NUR ---
CM REASSESSMENT NOTE: MARCIA MURDOCK WAS NOTIFIED OF D/C. CALL TO PATIENTS UNCLE RICKY HARTMANN WITH NO ANSWER. (LEFT MSG. TO CALL CM). PATIENT IS DISCHARGING TO [facility] THIS AM. HE IS BEING TRANSFERRED BY [facility] (YASH CASTRO, AND JUDY IVEY) TO THAT FACILITY.
[2017-05-27] MEDS ORDERED: ELIQUIS2.5 MG PO (09:11)
[2017-05-27] MEDS ORDERED: DEPAKOTE500 MG PO (09:11)
[2017-05-27] MEDS ORDERED: MYSOLINE250 MG PO (09:11)
[2017-05-27] MEDS ORDERED: CARBATROL300 MG PO (09:11)
[2017-05-27] MEDS ORDERED: BAYER CHEWABLE81 MG PO (09:11)
[2017-05-27] MEDS ORDERED: ACTOS30 MG PO (09:11)
[2017-05-27] MEDS ORDERED: LIPITOR40 MG PO (09:11)
--- NOTE | 2017-05-27 09:20 | NUR ---
[facility] HER FOR TRANSPORT TO [facility].PAPERS SIGNED BY APS. PT LEFT UNIT VIA WHEELCHAIR FOR TRANSPORT
--- NOTE | 2017-05-27 09:33 | NUR ---
REPORT TO STEPHON KIM AT [facility]
== END 2017-05-27 09:24 | disposition home or self-care (01) | DRG 689 ==
LOC: D.M2 18:16 → OBSVTIME 18:16 → D.M2 18:16 → D.MS 18:17 → D.M2 18:17 → D.ICU 05-23 17:52 → D.MS 05-25 00:39
PROVIDERS: Emergency Medicine; Family Medicine; Family Medicine Adult Medicine; ADMIT Family Medicine
DX: N39.0 Urinary tract infection, site not specified (principal); G93.41 Metabolic encephalopathy; Z91.81 History of falling; I10 Essential (primary) hypertension; G93.89 Other specified disorders of brain; G40.909 Epilepsy, unspecified, not intractable, without status epilepticus; E10.9 Type 1 diabetes mellitus without complications; Z79.4 Long term (current) use of insulin; I73.9 Peripheral vascular disease, unspecified; I08.1 Rheumatic disorders of both mitral and tricuspid valves; K21.9 Gastro-esophageal reflux disease without esophagitis; E78.5 Hyperlipidemia, unspecified; G31.9 Degenerative disease of nervous system, unspecified; Z86.718 Personal history of other venous thrombosis and embolism; R00.1 Bradycardia, unspecified; R55 Syncope and collapse